=== PATIENT | female | born 1930 | race Caucasian/White ===

== ENCOUNTER 2017-02-15 08:31 | Inpatient (IN) | payer MEDICARE ==
[2017-02-15] MEDS ORDERED: NS 0.9% 1000 ML* 1,000 ML IV ONE (10:14)
[2017-02-15] MEDS ORDERED: LORazepam INJ* 2 MG/ML 1 ML VIAL IM ONE ×2 (10:14→14:43)
[2017-02-15] MEDS ORDERED: LORazepam INJ* 2 MG/ML 1 ML VIAL ONE (10:17)
[2017-02-15 11:21] LABS: Hematocrit 39 % (35-47); Hemoglobin 12.4 g/dl (12.0-16.0); Mean Corpuscular HGB Conc 32 g/dl (31-36); Mean Corpuscular Hemoglobin 28 pg (27-31); Mean Corpuscular Volume 85 fL (80-97); Mean Platelet Volume 8 um3 (7.4-10.4); Red Blood Count 4.53 10^6/ul (4.0-5.4); Red Cell Distribution Width 15 % (10.5-15); White Blood Count 10.3 10^3/ul (3.5-10.8)
[2017-02-15 11:38] LABS: ALT 11 U/L (7-52); AST 17 U/L (13-39); Alkaline Phosphatase 110 U/L (34-104); Anion Gap 8 mmol/L (2-11); BUN/Creatinine Ratio 24.1 (8-20); Blood Urea Nitrogen 33 mg/dL (6-24); CO2 Carbon Dioxide 26 mmol/L (22-32); Calcium 9.3 mg/dL (8.6-10.3); Chloride 108 mmol/L (101-111); Creatine Kinase 116 U/L (10-223); EGFR African American 46.9 (>60); EGFR Non-African American 36.5 (>60); Glucose 120 mg/dL (70-100); Magnesium 2.2 mg/dL (1.9-2.7); Potassium 4.5 mmol/L (3.5-5.0); Sodium 142 mmol/L (133-145)
--- NOTE | 2017-02-15 11:38 | RAD ---
Indication: Dementia. Single frontal view of the chest performed at 1100 hours was reviewed. No prior study is available. No mediastinal shift is noted. Heart is of normal size and configuration. Lung frias appear clear. IMPRESSION: NO ACTIVE CARDIOPULMONARY DISEASE IS NOTED.
--- NOTE | 2017-02-15 11:41 | RAD ---
INDICATION: Altered mental status. Dementia. COMPARISON: None TECHNIQUE: Noncontrast axial source images were acquired from the skull base to the vertex. FINDINGS: Ventricles/sulci: There is cortical atrophy with compensatory dilatation of the CSF spaces. Brain parenchyma: There is periventricular and subcortical white matter change compatible with chronic ischemia. Intracranial hemorrhage:None. Extra-axial spaces: There are no abnormal extra axial fluid collections or evidence of extra-axial mass. Calvarium: There is no calvarial fracture or other calvarial abnormality. Scalp: There is no evidence of scalp or extracalvarial soft tissue abnormality. Paranasal sinuses/mastoid: The paranasal sinuses and mastoid air cells are clear. Other: None. IMPRESSION: CORTICAL ATROPHY WITH CHRONIC MICROVASCULAR ISCHEMIC CHANGES. NO ACUTE FINDINGS.
[2017-02-15 12:15] LABS: Acetaminophen < 15 mcg/mL; Alcohol < 10 mg/dL (<10); Salicylate < 2.50 mg/dL (<30)
[2017-02-15 12:24] LABS: TSH (Thyroid Stimulating Horm) 0.82 mcIU/mL (0.34-5.60)
[2017-02-15] MEDS ORDERED: QUEtiapine TAB* 25 MG PO ONE (15:23)
[2017-02-15] MEDS ORDERED: amLODIPine TAB* 5 MG PO ONE (15:24)
[2017-02-15] MEDS: NS 0.9% 1000 ML* 1,000 ML BOLUS SCH (15:39)
[2017-02-15 16:37] LABS: Benzodiazepine Urine Screen None Detected (None Detect)
[2017-02-15 16:40] LABS: Urine Bacteria Absent (Absent); Urine Bilirubin Negative (Negative); Urine Glucose Negative (Negative); Urine Nitrite Negative (Negative)
--- NOTE | 2017-02-15 17:15 | ED ---
Sharif Sandoval Alfonso, scribed for Shawanda Mejia MD on 02/15/17 at 1020 . Psychiatric Complaint - HPI Summary HPI Summary: LEVEL 5 CAVEAT DUE TO COMBATIVE BEHAVIOR AMS. This patient is an 87 year old F BIBA to [facility] accompanied by daughter and Walnutedy Steven JOAQUIM with a chief complaint of combative behavior since this morning. She was kicking, punching, and fighting" per ALUMINUM HYDROXIDE PROCESS OPERATOR. Symptoms aggravated by nothing. Symptoms alleviated by nothing. Nurse denies any complaints of pain. Daughter reports Ativan has resolved this behavior in the past. PMHx includes dementia. PSHx Jul 2004 surgery colon and lung cancer. Pt was admitted in [facility] and was just transferred to the memory care unit of [facility] today, and has not had full intake there before she became combative. - History Of Current Complaint Chief Complaint: EDGeneral Time Seen by Provider: 02/15/17 10:10 Hx Obtained From: Patient, Family/Production Boring Machine Operator Onset/Duration: Sudden Onset, Lasting Hours, Still Present Timing: Constant Severity Initially: Moderate Severity Currently: Moderate Character: Angry, Frustrated Aggravating Factor(s): Nothing Alleviating Factor(s): Nothing Associated Signs And Symptoms: Positive: Hostile - Allergies/Home Medications Allergies/Adverse Reactions: Allergies Allergy/AdvReac Type Severity Reaction Status Date / Time Codeine Allergy Vomiting Verified 02/15/17 10:49 Hydromorphone [From Dilaudid] Allergy Agitation Verified 02/15/17 10:49 Home Medications: Home Medications Aspirin EC Low Dose* [Ecotrin EC Low Dose 81 MG*] 81 mg PO DAILY 02/15/17 [ History Confirmed 02/15/17] Atorvastatin* [Lipitor*] 40 mg PO QPM 02/15/17 [History Confirmed 02/15/17] Clopidogrel TAB* [Plavix TAB*] 75 mg PO DAILY 02/15/17 [History Confirmed ] Ergocalciferol CAP* [Drisdol CAP*] 50,000 unit PO Q7D 02/15/17 [History Confirmed 02/15/17] Metoprolol Tartrate TAB* [Lopressor TAB*] 50 mg PO BID 02/15/17 [History Confirmed 02/15/17] Mirtazapine TAB* [Remeron TAB*] 15 mg PO BEDTIME 02/15/17 [History Confirmed 12/25] Pantoprazole TAB (NF) [Protonix TAB (NF)] 40 mg PO DAILY 02/15/17 [History Confirmed 02/15/17] Polyethylene Glycol 3350* [Miralax*] 17 gm PO QAM 02/15/17 [History Confirmed ] QUEtiapine TAB* [SEROquel TAB*] 25 mg PO BID 02/15/17 [History Confirmed ] amLODIPine TAB* [Norvasc 5 mg TAB*] 5 mg PO DAILY 02/15/17 [History Confirmed ] busPIRone TAB* [Buspar TAB*] 10 mg PO BID 02/15/17 [History Confirmed 02/15/17] PMH/Surg Hx/FS Hx/Imm Hx Previously Healthy: No - dementia, hx UTI's Sensory History: Denies: Hx Deafness Opthamlomology History: Denies: Hx Legally Blind Neurological History: Reports: Hx Dementia - Cancer History Cancer Type, Location and Year: 2004 surgery colon and lung cancer. Infectious Disease History: No Infectious Disease History: Denies: Traveled Outside the [place] in Last 30 Days - Family History Known Family History: Positive: Cardiac Disease, Other - CVA - Social History Lives: Assisted Living - memory care unit [facility] Alcohol Use: None Substance Use Type: Reports: None Smoking Status (MU): Never Smoked Tobacco Review of Systems - ROS Summary Review of Systems Summary: LEVEL 5 CAVEAT DUE TO COMBATIVE BEHAVIOR AMS. Positive: Other - Negative any complaints of pain Psychological: Other - Combative, All Other Systems Reviewed And Are Negative: Yes Physical Exam Triage Information Reviewed: Yes Vital Signs On Initial Exam: Initial Vitals Temp Pulse Resp BP Pulse Ox 97.5 F 92 20 136/73 96 02/15/17 08:41 02/15/17 08:41 02/15/17 08:41 02/15/17 08:41 02/15/17 08:41 Vital Signs Reviewed: Yes Completion Of Physical Exam Limited Due To: Level 5 Appearance: Positive: No Pain Distress, Well-Nourished, Ill-Appearing Skin: Positive: Warm, Skin Color Reflects Adequate Perfusion Head/Face: Positive: Normal Head/Face Inspection Eyes: Positive: Conjunctiva Clear ENT: Positive: Normal ENT inspection Neck: Positive: Supple, Nontender Respiratory/Lung Sounds: Positive: Clear to Auscultation, Breath Sounds Present , Other - no respiratory distress Cardiovascular: Positive: RRR, Pulses are Symmetrical in both Upper and Lower Extremities, Other - brisk capillary refill. Negative: Murmur Abdomen Description: Positive: Nontender, Soft. Negative: Distended, Guarding, Peritoneal Signs, Pulsatile Mass Bowel Sounds: Positive: Present Musculoskeletal: Positive: Strength/ROM Intact Neurological: Positive: Sensory/Motor Intact, Facial Symmetry, Speech Normal Psychiatric: Positive: Other - Rambling speech, combative, hitting, swinging arms, Patient Uncooperative for Exam - [place] Coma Scale Coma Scale Total: 12 Diagnostics - Vital Signs Vital Signs Temp Pulse Resp BP Pulse Ox 02/15/17 08:41 97.5 F 92 20 136/73 96 - Laboratory Lab Results: Lab Results 02/15/17 02/15/17 02/15/17 Range/Units 11:09 11:09 11:09 WBC 10.3 (3.5-10.8) 10^3/ul RBC 4.53 (4.0-5.4) 10^6/ul Hgb 12.4 (12.0-16.0) g/dl Hct 39 (35-47) % MCV 85 (80-97) fL MCH 28 (27-31) pg MCHC 32 (31-36) g/dl RDW 15 (10.5-15) % Plt Count 303 (150-450) 10^3/ul MPV 8 (7.4-10.4) um3 Neut % (Auto) 87.3 H (38-83) % Lymph % (Auto) 6.7 L (25-47) % Hanover % (Auto) 4.8 (1-9) % Eos % (Auto) 0.5 (0-6) % Baso % (Auto) 0.7 (0-2) % Absolute Neuts (auto) 9.0 H (1.5-7.7) 10^3/ul Absolute Lymphs (auto) 0.7 L (1.0-4.8) 10^3/ul Absolute Monos (auto) 0.5 (0-0.8) 10^3/ul Absolute Eos (auto) 0 (0-0.6) 10^3/ul Absolute Basos (auto) 0.1 (0-0.2) 10^3/ul Absolute Nucleated RBC 0 10^3/ul Nucleated RBC % 0 INR (Anticoag Therapy) (0.89-1.11) Sodium 142 (133-145) mmol/L Potassium 4.5 (3.5-5.0) mmol/L Chloride 108 (101-111) mmol/L Carbon Dioxide 26 (22-32) mmol/L Anion Gap 8 (2-11) mmol/L BUN 33 H (6-24) mg/dL Creatinine 1.37 H (0.51-0.95) mg/dL Est GFR ( Amer) 46.9 (>60) Est GFR (Non-Af Amer) 36.5 (>60) BUN/Creatinine Ratio 24.1 H (8-20) Glucose 120 H (70-100) mg/dL POC Glucose (mg/dL) (70-100) mg/dL Lactic Acid (0.5-2.0) mmol/L Calcium 9.3 (8.6-10.3) mg/dL Magnesium 2.2 (1.9-2.7) mg/dL Total Bilirubin 0.60 (0.2-1.0) mg/dL AST 17 (13-39) U/L ALT 11 (7-52) U/L Alkaline Phosphatase 110 H (34-104) U/L Ammonia TNP Total Creatine Kinase 116 (10-223) U/L Troponin I 0.00 (<0.04) ng/mL Total Protein 7.0 (6.4-8.9) g/dL Albumin 4.0 (3.2-5.2) g/dL Globulin 3.0 (2-4) g/dL Albumin/Globulin Ratio 1.3 (1-3) TSH 0.82 (0.34-5.60) mcIU/mL Urine Color Urine Appearance Urine pH (5-9) Ur Specific Pharr (1.010-1.030) Urine Protein (Negative) Urine Ketones (Negative) Urine Blood (Negative) Urine Nitrate (Negative) Urine Bilirubin (Negative) Urine Urobilinogen (Negative) Ur Leukocyte Esterase (Negative) Urine WBC (Auto) (Absent) Urine RBC (Auto) (Absent) Urine Bacteria (Absent) Urine Glucose (Negative) Salicylates < 2.50 (<30) mg/dL Urine Opiates Screen (None Detect) Acetaminophen < 15 mcg/mL Ur Barbiturates Screen (None Detect) Ur Phencyclidine Scrn (None Detect) Ur Amphetamines Screen (None Detect) U Benzodiazepines Scrn (None Detect) Urine Cocaine Screen (None Detect) U Cannabinoids Screen (None Detect) Serum Alcohol < 10 (<10) mg/dL 02/15/17 02/15/17 02/15/17 Range/Units 11:09 11:09 11:14 WBC (3.5-10.8) 10^3/ul RBC (4.0-5.4) 10^6/ul Hgb (12.0-16.0) g/dl Hct (35-47) % MCV (80-97) fL MCH (27-31) pg MCHC (31-36) g/dl RDW (10.5-15) % Plt Count (150-450) 10^3/ul MPV (7.4-10.4) um3 Neut % (Auto) (38-83) % Lymph % (Auto) (25-47) % Hanover % (Auto) (1-9) % Eos % (Auto) (0-6) % Baso % (Auto) (0-2) % Absolute Neuts (auto) (1.5-7.7) 10^3/ul Absolute Lymphs (auto) (1.0-4.8) 10^3/ul Absolute Monos (auto) (0-0.8) 10^3/ul Absolute Eos (auto) (0-0.6) 10^3/ul Absolute Basos (auto) (0-0.2) 10^3/ul Absolute Nucleated RBC 10^3/ul Nucleated RBC % INR (Anticoag Therapy) 0.83 L (0.89-1.11) Sodium (133-145) mmol/L Potassium (3.5-5.0) mmol/L Chloride (101-111) mmol/L Carbon Dioxide (22-32) mmol/L Anion Gap (2-11) mmol/L BUN (6-24) mg/dL Creatinine (0.51-0.95) mg/dL Est GFR ( Amer) (>60) Est GFR (Non-Af Amer) (>60) BUN/Creatinine Ratio (8-20) Glucose (70-100) mg/dL POC Glucose (mg/dL) 124 H (70-100) mg/dL Lactic Acid 1.1 (0.5-2.0) mmol/L Calcium (8.6-10.3) mg/dL Magnesium (1.9-2.7) mg/dL Total Bilirubin (0.2-1.0) mg/dL AST (13-39) U/L ALT (7-52) U/L Alkaline Phosphatase (34-104) U/L Ammonia Total Creatine Kinase (10-223) U/L Troponin I (<0.04) ng/mL Total Protein (6.4-8.9) g/dL Albumin (3.2-5.2) g/dL Globulin (2-4) g/dL Albumin/Globulin Ratio (1-3) TSH (0.34-5.60) mcIU/mL Urine Color Urine Appearance Urine pH (5-9) Ur Specific Pharr (1.010-1.030) Urine Protein (Negative) Urine Ketones (Negative) Urine Blood (Negative) Urine Nitrate (Negative) Urine Bilirubin (Negative) Urine Urobilinogen (Negative) Ur Leukocyte Esterase (Negative) Urine WBC (Auto) (Absent) Urine RBC (Auto) (Absent) Urine Bacteria (Absent) Urine Glucose (Negative) Salicylates (<30) mg/dL Urine Opiates Screen (None Detect) Acetaminophen mcg/mL Ur Barbiturates Screen (None Detect) Ur Phencyclidine Scrn (None Detect) Ur Amphetamines Screen (None Detect) U Benzodiazepines Scrn (None Detect) Urine Cocaine Screen (None Detect) U Cannabinoids Screen (None Detect) Serum Alcohol (<10) mg/dL 02/15/17 02/15/17 Range/Units 14:10 14:10 WBC (3.5-10.8) 10^3/ul RBC (4.0-5.4) 10^6/ul Hgb (12.0-16.0) g/dl Hct (35-47) % MCV (80-97) fL MCH (27-31) pg MCHC (31-36) g/dl RDW (10.5-15) % Plt Count (150-450) 10^3/ul MPV (7.4-10.4) um3 Neut % (Auto) (38-83) % Lymph % (Auto) (25-47) % Hanover % (Auto) (1-9) % Eos % (Auto) (0-6) % Baso % (Auto) (0-2) % Absolute Neuts (auto) (1.5-7.7) 10^3/ul Absolute Lymphs (auto) (1.0-4.8) 10^3/ul Absolute Monos (auto) (0-0.8) 10^3/ul Absolute Eos (auto) (0-0.6) 10^3/ul Absolute Basos (auto) (0-0.2) 10^3/ul Absolute Nucleated RBC 10^3/ul Nucleated RBC % INR (Anticoag Therapy) (0.89-1.11) Sodium (133-145) mmol/L Potassium (3.5-5.0) mmol/L Chloride (101-111) mmol/L Carbon Dioxide (22-32) mmol/L Anion Gap (2-11) mmol/L BUN (6-24) mg/dL Creatinine (0.51-0.95) mg/dL Est GFR ( Amer) (>60) Est GFR (Non-Af Amer) (>60) BUN/Creatinine Ratio (8-20) Glucose (70-100) mg/dL POC Glucose (mg/dL) (70-100) mg/dL Lactic Acid (0.5-2.0) mmol/L Calcium (8.6-10.3) mg/dL Magnesium (1.9-2.7) mg/dL Total Bilirubin (0.2-1.0) mg/dL AST (13-39) U/L ALT (7-52) U/L Alkaline Phosphatase (34-104) U/L Ammonia Total Creatine Kinase (10-223) U/L Troponin I (<0.04) ng/mL Total Protein (6.4-8.9) g/dL Albumin (3.2-5.2) g/dL Globulin (2-4) g/dL Albumin/Globulin Ratio (1-3) TSH (0.34-5.60) mcIU/mL Urine Color Yellow Urine Appearance Clear Urine pH 7.0 (5-9) Ur Specific Pharr 1.011 (1.010-1.030) Urine Protein Negative (Negative) Urine Ketones Negative (Negative) Urine Blood Negative (Negative) Urine Nitrate Negative (Negative) Urine Bilirubin Negative (Negative) Urine Urobilinogen Negative (Negative) Ur Leukocyte Esterase Trace H (Negative) Urine WBC (Auto) Trace(0-5/hpf) (Absent) Urine RBC (Auto) Absent (Absent) Urine Bacteria Absent (Absent) Urine Glucose Negative (Negative) Salicylates (<30) mg/dL Urine Opiates Screen None detected (None Detect) Acetaminophen mcg/mL Ur Barbiturates Screen None detected (None Detect) Ur Phencyclidine Scrn None detected (None Detect) Ur Amphetamines Screen None detected (None Detect) U Benzodiazepines Scrn None detected (None Detect) Urine Cocaine Screen None detected (None Detect) U Cannabinoids Screen None detected (None Detect) Serum Alcohol (<10) mg/dL Result Diagrams: 02/15/17 11:09 02/15/17 11:09 Lab Statement: Any lab studies that have been ordered have been reviewed, and results considered in the medical decision making process. - Radiology CXR Radiology Interpretation Completed By: Radiologist - NO ACTIVE CARDIOPULMONARY DISEASE IS NOTED. ED physician has reviewed this radiology report and agrees. - CT Brain CT Interpretation Completed By: Radiologist - CORTICAL ATROPHY WITH CHRONIC MICROVASCULAR ISCHEMIC CHANGES. NO ACUTE FINDINGS. ED physician has reviewed this radiology report and agrees. Re-Evaluation - Re-Evaluation First Eval Re-Evaluation Time: 14:48 Comment: Patient still agitated. Pt administered another dose of medication. Second Eval Re-Evaluation Time: 16:56 - pt sleeping after second dose of Ativan 2mg. Urinalysis is neg for infx. Pt's daughter Theresa discussed with Vivian Prieto, business development executive of the memory care unit at [facility]. [phone]. Daughter agrees to social admission if pt does not meet admission criteria. Vivian Prieto and Kassandra Steven will check on pt in the am. Change: Improved Course/Dx - Course Assessment/Plan: LEVEL 5 CAVEAT DUE TO COMBATIVE BEHAVIOR AMS. This patient is an 87 year old F BIBA to [facility] accompanied by daughter and Amy Steven LPN with a chief complaint of combative behavior since this morning. She was kicking, punching, and fighting. Symptoms aggravated by nothing. Symptoms alleviated by nothing. Nurse denies any complaints of pain. Daughter reports Ativan has resolved this behavior in the past. PMHx includes dementia. PSHx Jul 2004 surgery colon and lung cancer. An EKG has been refused at this time. CXR reveals NO ACTIVE CARDIOPULMONARY DISEASE IS NOTED. ED physician has reviewed this radiology report and agrees. Brain CT reveals CORTICAL ATROPHY WITH CHRONIC MICROVASCULAR ISCHEMIC CHANGES. NO ACUTE FINDINGS. ED physician has reviewed this radiology report and agrees. labs show elevated BUN creatinine. Pt given 2 liters IV fluid in ED. pt given ativan 2mg IM x 2 due to combative behavior. UA neg. Pt was seen by Lina from social work. Discussed with Dr. Wilson. Pt does not meet admission criteria for acute care. Plan to admit for social admission and further evaluation and stabilization. - Differential Dx/Clinical Impression Differential Diagnosis/HQI/PQRI: Positive: Acute Psychosis, Other - UTI, metabolic disorder Provider Diagnosis: Dementia, Combative behavior - Physician Notifications Instructed by Provider To: Admit As Observation - social admission Discharge - Discharge Plan Condition: Stable Disposition: ADMITTED TO [facility] Discharge Disposition Comment: social admission Referrals: Addis Mcadams MD [Primary Care Provider] - The documentation as recorded by the Sharif jackson Alfonso accurately reflects the service I personally performed and the decisions made by , Shawanda Mejia MD.
[2017-02-15] MEDS ORDERED: busPIRone TAB* 5 MG PO SCH (21:00)
[2017-02-15] MEDS: Mirtazapine TAB* 15 MG PO SCH (21:20)
[2017-02-15] MEDS: Haloperidol INJ IV/IM* 5 MG/ML AMP IM PRN (21:50)
[2017-02-15] MEDS: QUEtiapine TAB* 25 MG PO SCH (21:51)
[2017-02-15] MEDS: Metoprolol Tartrate TAB* 50 mg PO SCH (21:51)
[2017-02-15] MEDS: busPIRone TAB* 10 MG PO SCH (21:52)
[2017-02-15] MEDS: Enoxaparin(*) 30 MG/0.3 ML SYR SUBCUT SCH (21:55)
--- NOTE | 2017-02-15 22:28 | HP ---
SUPERVISING PHYSICIAN'S ADDENDUM NOW INCLUDED ON THIS REPORT CC: Dr. Mcadams; [facility] * ADMISSION HISTORY AND PHYSICAL: DATE OF ADMISSION: PRIMARY CARE PROVIDER: Dr. Mcadams. ADMITTING PROVIDER: HILDA Chatterjee SUPERVISING PHYSICIAN: Prabha Bustamante MD * (DICTATED BY HILDA CHATTERJEE) CHIEF COMPLAINT: Acute agitation. HISTORY OF PRESENT ILLNESS: This is an 87-year-old female with known moderate to severe dementia as well as history of prior TIA, carotid stenosis, status post carotid endarterectomy, hypertension, remote history of lung cancer and colorectal cancer, who was transferred to [facility] yesterday from a rehab facility in the [facility] to be closer to her daughter. The patient had been treated for urinary tract infection during a recent hospital stay in the [facility] and transferred from there to a local rehab facility. Her daughter wanted to get her closer to her home in [place] and had arranged transfer to [facility]. She was taken by ambulance yesterday to [place] and was quite anxious about the transfer, but arrived yesterday afternoon and participated in mealtime and was able to feed herself without concern. This morning, she awoke and became severely combative, trying to bite , scratch, and punch nursing staff. She was subsequently transferred to the emergency department for further evaluation. The patient has had no other acute illness. Her daughter states that she has displayed similar, but less severe behavior in the past associated with her dementia and has previously responded to Ativan. The patient's daughter states that at her baseline, her memory is poor, sometimes she forgets who her daughter is, but she is able to ambulate nearly independently as well as feed herself. Up until the last couple of months, she was also continent of urine, but has recently become reliant on the use of Depends due to urinary incontinence. Apart from her transfer from [facility] yesterday, there has been no recent changes or other acute complaints. The patient's daughter also notes that she has had better response to treatment with Seroquel at 50 mg twice daily and notices that the recent rehab facility had decreased her down to 25 mg twice daily. PAST MEDICAL HISTORY: 1. Dementia, moderate to severe with history of behavior concerns, but generally mild. 2. History of TIA. 3. Carotid stenosis status post carotid endarterectomy. 4. History of lung cancer, status post lobectomy and radiation. 5. Colorectal cancer, status post partial colectomy. 6. Hypertension. PAST SURGICAL HISTORY: 1. Carotid endarterectomy. 2. Lobectomy. 3. Partial colectomy. HOME MEDICATIONS: 1. Aspirin 81 mg p.o. daily. 2. Atorvastatin 40 mg p.o. daily. 3. Plavix 75 mg p.o. daily. 4. Metoprolol 50 mg p.o. twice daily. 5. Remeron 15 mg p.o. at bedtime. 6. Protonix 40 mg p.o. daily. 7. MiraLAX 17 g p.o. daily. 8. Seroquel 25 mg p.o. twice daily. 9. Amlodipine 5 mg p.o. daily. 10. BuSpar 10 mg p.o. twice daily. SOCIAL HISTORY: The patient has a remote smoking history, unsure of the pack years. No regular alcohol consumption. She is a senior living resident of [facility] and recently moved to [place] yesterday. REVIEW OF SYSTEMS: Unable to obtain from the patient; but per her daughter, there have been no recent complaints. PHYSICAL EXAMINATION VITAL SIGNS: Temperature 97.5 degrees Fahrenheit, pulse 93 beats per minute, respiratory rate 20 per minute, oxygen saturation 96% on room air, and blood pressure 136/73 mmHg. GENERAL: This is an elderly female, who lies with her eyes closed, but appears somewhat restless in her hospital bed, accompanied by her daughter. HEENT: Head is normocephalic and atraumatic. Unable to examine mucous membranes. CARDIOVASCULAR: Heart has a regular rate and rhythm without murmurs, rubs, or gallops. RESPIRATORY: The patient is not cooperative with lung exam, but no adventitious sounds appreciated. ABDOMEN: Abdomen is soft and seemingly nontender. SKIN: She has multiple areas of ecchymosis, but no concerning rashes or lesions. PSYCH: The patient lies with her eyes closed, does not respond to verbal stimuli and appears restless and disoriented. DIAGNOSTIC STUDIES/LAB DATA: CBC shows a white blood cell count of 10,300, hemoglobin of 12.4 g/dL, and a platelet count of 303,000. INR 0.83. Comprehensive metabolic panel is largely unremarkable. Sodium of 142, potassium 4.5, BUN of 33, creatinine of 1.37, lactic acid normal up to 1.1. Transaminases total bilirubin within normal limits. Troponin negative. Urinalysis shows trace leukocyte esterase, but otherwise unremarkable. Urine toxicology screen is negative. IMAGING: Chest x-ray shows no acute process. CT of the brain shows chronic ischemic changes and cortical atrophy, but no acute findings. ASSESSMENT AND PLAN: This is an 87-year-old female with advanced dementia, brought to the emergency department for evaluation from [place] for severe agitation after transfer from the [facility] yesterday. No acute findings identified on workup in the emergency department, but she is unable to return to [facility] or home with her daughter due to the severity of her behaviors and will subsequently be admitted to the hospital for further treatment. 1. Advanced dementia with severe agitation. The patient's agitation is likely due to her acute transition in the last 24 hours where she travelled from the [facility] to [place]. No reversible causes for change in behavior identified on workup in the emergency department. She received multiple doses of oral antipsychotics and IM benzodiazepines in the emergency department. She is somewhat sedated, but still quite restless at this time. We will plan to continue her home medications, but increase her Seroquel to 50 mg twice daily as she is able to cooperate with oral medications. We will hold off on additional benzos, utilize as needed Haldol if necessary for episodes of severe agitation. Staff from [facility] plans to come to reevaluate the patient for appropriate necessary return to [facility] tomorrow. 2. Hypertension. We will continue her home hypertensives. 3. History of lung cancer, status post lobectomy and radiation. 4. History of colorectal cancer, status post partial colectomy. 5. Carotid stenosis, status post carotid endarterectomy. 6. Code status. The patient is full code. 7. Her healthcare proxy is her daughter, Melanie. 8. DVT prophylaxis. The patient will be started on subcu Lovenox. DISPOSITION: The patient is being admitted to observation status for severe agitation with plan to reevaluate appropriateness to return to [place] by nursing staff tomorrow. HILDA CHATTERJEE ADDENDUM: Mrs. Bhatia is an 87-year-old female with history of dementia who was just admitted to one of our nursing homes from hospitalization in the [facility]. The patient presented to the group home combative and unmanageable in the facility. The facility brought the patient back to our ED for evaluation. Here she is going to be admitted for snf care admission. For further details of patient's presentation and plan, please see history and physical dictated by HILDA Chatterjee, on 02/15/17, with which I agree. PRABHA BUSTAMANTE MD [id number]/[facility] #: [id number]/CPS #: [id number] ANETTE
--- NOTE | 2017-02-15 22:36 | HP ---
HISTORY AND PHYSICAL:* ADDENDUM: Mrs. Bhatia is an 87-year-old female with history of dementia who was just admitted to one of our nursing homes from hospitalization in the [facility] area. The patient presented to the retirement combative and unmanageable in the facility. The facility brought the patient back to our ED for evaluation. Here she is going to be admitted for residential care admission. For further details of patient's presentation and plan, please see history and physical dictated by HILDA Blas, on 02/15/17, with which I agree. [id number]/[facility] #: [id number] MTDD
[2017-02-16] MEDS: Haloperidol INJ IV/IM* 5 MG/ML AMP IM PRN ×2 (02:32→12:10)
[2017-02-16] MEDS: busPIRone TAB* 10 MG PO SCH ×5 (10:41→23:43)
[2017-02-16] MEDS: CMCS: Pantoprazole TAB (NF) 40 MG TAB PO SCH (10:41)
[2017-02-16] MEDS: Polyethylene Glycol 3350* 17 GM PACKET PO SCH (10:41)
--- NOTE | 2017-02-16 11:21 | PN ---
Subjective Date of Service: 02/16/17 Interval History: Patient was admitted yesterday with c/o severe agitation and known advanced dementia. Patient was severely agitated upon transfer from the ER to medical floor last night. She took her oral evening meds and required 2 doses of IM Haldol. She is sleeping this morning and has not awoken for breakfast or morning medications Objective Active Medications: Acetaminophen (Tylenol Tab*) 650 mg PO Q4H PRN PRN Reason: FEVER/PAIN Amlodipine Besylate (Norvasc Tab*) 5 mg PO DAILY [facility] Aspirin (Aspirin Ec Low Dose*) 81 mg PO DAILY [facility] Atorvastatin Calcium (Lipitor*) 40 mg PO QPM [facility] Buspirone HCl (Buspar Tab*) 10 mg PO BID [facility] Last Admin: 02/16/17 10:41 Dose: Not Given Clopidogrel Bisulfate (Plavix Tab*) 75 mg PO DAILY [facility] Enoxaparin Sodium (Lovenox(*)) 30 mg SUBCUT Q24H [facility] Last Admin: 02/15/17 21:55 Dose: 30 mg Sodium Chloride (Ns 0.9% 1000 Ml*) 1,000 mls @ 0 mls/hr BOLUS .BOLUS DOSE [facility] PRN Reason: Wide Open Last Admin: 02/15/17 15:39 Dose: 999 mls/hr Metoprolol Tartrate (Lopressor Tab*) 50 mg PO BID [facility] Last Admin: 02/15/17 21:51 Dose: 50 mg Mirtazapine (Remeron Tab*) 15 mg PO BEDTIME [facility] Last Admin: 02/15/17 21:20 Dose: 15 mg Pantoprazole Sodium (Protonix Tab (Nf)) 40 mg PO DAILY [facility] Last Admin: 02/16/17 10:41 Dose: Not Given Polyethylene Glycol/Electrolytes (Miralax*) 17 gm PO QAM [facility] Last Admin: 02/16/17 10:41 Dose: Not Given Quetiapine Fumarate (Seroquel Tab*) 50 mg PO BID [facility] Last Admin: 02/15/17 21:51 Dose: 50 mg Vital Signs: Temp Pulse Resp BP Pulse Ox 97.2 F 83 15 136/111 97 02/15/17 19:44 02/16/17 07:23 02/16/17 07:28 02/16/17 07:23 02/16/17 07:23 Appearance: Elderly female who is resting comfortably. She not stir during exam Respiratory: Symmetrical Chest Expansion and Respiratory Effort, Clear to Auscultation, - - limited exam Cardiovascular: NL Sounds; No Murmurs; No JVD, RRR Abdominal: NL Sounds; No Tenderness; No Distention, - - limited exam Extremities: No Edema Neurological: - - sleeping, she does not wake to light stimuli Result Diagrams: 02/15/17 11:09 02/15/17 11:09 Additional Lab and Data: . Microbiology and Other Data: Microbiology 02/15/17 21:05 Nasal Screen MRSA (PCR)(RAINE) - Final Nasal Mrsa Positive Assess/Plan/Problems-Billing Assessment: This is an 87 yo female with advanced dementia as well as prior TIA and HTN who was admitted for severe agitation. - Patient Problems (1) Agitation Comment: Severe, physically threatening staff overnight She is now sedated after 2 doses of IV Haldol Requested psychiatry consultation to aid in medication management (2) Dementia Comment: Moderate to severe with history of mild behavior concerns (3) History of TIA (transient ischemic attack) Comment: Cont statin and antiplatelet agents (4) Hypertension Comment: Normotensive Resume oral medications when she can take oral medication (5) Full code status Comment: Signed MOLST (6) DVT prophylaxis Comment: SQ Lovenox Status and Disposition: Inpatient. Plan for re-evaluation Sunday by Amy for appropriateness to return vs need for fpc facility
[2017-02-16] MEDS: Metoprolol Tartrate TAB* 50 mg PO SCH ×2 (14:38→23:43)
[2017-02-16] MEDS: QUEtiapine TAB* 25 MG PO SCH ×3 (14:38→23:32)
[2017-02-16] MEDS: amLODIPine TAB* 5 MG PO SCH (18:29)
[2017-02-16] MEDS: Clopidogrel TAB* 75 MG PO SCH (18:29)
[2017-02-16] MEDS: Aspirin EC Low Dose* 81 MG TAB.EC PO SCH (18:29)
[2017-02-16] MEDS: Enoxaparin(*) 30 MG/0.3 ML SYR SUBCUT SCH (18:29)
[2017-02-16] MEDS: Atorvastatin* 40 MG TAB PO SCH (18:29)
[2017-02-16] MEDS: LORazepam INJ* 2 MG/ML 1 ML VIAL IV PUSH PRN ×2 (18:36→23:00)
[2017-02-16] MEDS: Mirtazapine TAB* 15 MG PO SCH (23:32)
--- NOTE | 2017-02-16 23:39 | CONS ---
PSYCHIATRIC CONSULTATION REPORT: DATE OF CONSULT: 02/15/17 DATE OF ADMISSION: 02/15/17 ATTENDING PROVIDER: Physician's preschool assistant, Morganemiliano Sifuentes. CONSULTING PHYSICIAN: Domo Schmidt MD. REASON FOR CONSULTATION: Agitation. SUBJECTIVE HISTORY: Psychiatry is asked to see this 87-year-old white female with a history of xgylxpdl-[id number]-yoiwns dementia as well as history of prior TIA, carotid stenosis, carotid endarterectomy, hypertension, remote history of lung cancer and colorectal cancer who was transferred to the [facility] yesterday from a nursing facility in [place], [place] in order to be closer to her daughter who resides in [facility]. I am reading the admission note from Ms. Sifuentes which indicates that the patient had recently been treated for urinary tract infection and was then transferred to a local rehab facility. Her daughter wanted her to be closer to her home in [place] and had arranged the transfer to [facility]. H and P documentation indicates that the patient was taken by ambulance to [facility] and was quite anxious about this transfer, but was able to feed herself and cooperate without concern until the morning of admission. At that time, she awoke and became severely combative, trying to bite, scratch and pinch nursing staff, and she was subsequently transferred to the [facility] ED for further evaluation. At this time, the patient is observed in bed. She is asleep and unarousable having just received an IM injection of 2.5 mg of haloperidol approximately one-hour prior to my arrival. I did speak with her nurse on the unit who indicates that the patient has not been accepting p.o. medication and was agitated and trying to bite staff. In order to receive further collateral information, I called the patient's daughter Theresa, who indicates that the patient has had several episodes of confusion since 2014 following her surgery for colorectal cancer. While the patient was awaiting hospitalization in our emergency room, she had at least 2 episodes of combative behavior and wished she was sedated with Ativan, which made her sleep, but she promptly awoke in an agitated state. At this point, the primary team has already increased the patient's Seroquel from 25 to 50 and placed her on as needed haloperidol for agitation. In speaking with the patient's daughter I discovered that in the past the patient had done quite well behaviorally on quetiapine 50 mg twice daily and the family is frustrated that her outpatient provider has decreased this. It is uncertain rationale why the medication was reduced. At any rate, the patient presents as somnolent and difficult to arouse. She is not able to make any complaints of her own accord at this time. PSYCHIATRIC HISTORY: The patient has been diagnosed with dementia for the past 2 years. Seroquel was started in the spring during a brief hospitalization at [facility]. It was initially 12.5 mg twice daily then titrated to 25 and finally 50 mg b.i.d. The patient's family indicates that this worked well for her, but the medication was reduced by the doctors at the rehab where she was staying. Prior to her dementia, she had no psychiatric history. SUBSTANCE ABUSE HISTORY: The patient is a former smoker who quit approximately 20 years ago. She has no history of alcohol or illicit drug abuse. FAMILY HISTORY: Noncontributory. MEDICAL HISTORY: Significant for [id number]-vvmhrlyw dementia, history of TIA, history of carotid stenosis status post carotid endarterectomy, history of lung cancer, status post lobectomy and radiation, colorectal cancer status post partial colectomy, hypertension, and chronic constipation. HOME MEDICATIONS: Include; 1. Aspirin 81 mg daily. 2. Atorvastatin 40 mg daily. 3. Plavix 75 mg daily. 4. Metoprolol 50 mg twice daily. 5. Remeron 15 mg at bedtime. 6. Protonix 40 mg daily. 7. MiraLAX 17 g daily. 8. Seroquel 25 mg p.o. b.i.d. 9. Amlodipine 5 mg daily. 10. BuSpar 10 mg twice a day. SOCIAL HISTORY: The patient is from [place]. She was , but approximately 24 years ago. She has 2 children, a son and a daughter. Her son resides in [place] [facility] [place] [facility] whereas her daughter resides in [facility]. 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 Most recently, she has been transferred to [facility] in order to reside closer to her daughter who resides in [place]. MENTAL STATUS EXAM: The patient is an aging white female who is elderly. She is under her blanket, asleep, curled up in her bed, lying on her side. She is asleep and unarousable and therefore I am unable to gauge her mood or affect, her thought process or thought content, her insight or her judgement. It would appear from recent staff's accounts that she is agitated and labile of late. DIAGNOSIS: Are as follows, [place] I: Dementia, rule out delirium, rule out unspecified anxiety disorder. ASSESSMENT: The patient is an 87-year-old white female with a history of dementia as well as multiple medical problems who was transferred here from the [facility] having only spent a 24 hour period there following a transfer from a senior facility in [place] [facility] who now presents as confused and agitated. She is biting staff, will not take p.o. medications, and has been quite combative. The primary team has already increased her Seroquel from 25 mg to 50 mg b.i.d. and the family is very much supportive of this. She is also receiving BuSpar twice daily for anxiety and Remeron 15 mg nightly presumably for insomnia and depression. The primary team is also using as needed p.r.n. haloperidol IM injections for breakthrough combativeness. Recommendations to primary team, Psychiatry supports the increase in quetiapine from 25 mg to 50 mg. It sounds like when she is able to take this, it does well. In the meantime, her agitation will need to be managed with low dose haloperidol, which has already been ordered by the primary team as well. Psychiatry will continue to follow along with you. It is notable that this clinician will not be here this weekend and therefore consult duties will pass on to the on-call psychiatrist, Dr. Angel Terrell. He can be contacted by calling the Behavioral Science Unit which can be reached at the extension [phone]. Psychiatry will continue to follow. [id number]/CPS #: [id number] ANETTE
[2017-02-17] MEDS: Haloperidol INJ IV/IM* 5 MG/ML AMP IM PRN ×3 (09:34→21:59)
[2017-02-17] MEDS: LORazepam INJ* 2 MG/ML 1 ML VIAL IV PUSH PRN ×3 (09:54→21:22)
[2017-02-17] MEDS: amLODIPine TAB* 5 MG PO SCH (10:36)
[2017-02-17] MEDS: Clopidogrel TAB* 75 MG PO SCH (10:36)
[2017-02-17] MEDS: QUEtiapine TAB* 25 MG PO SCH ×2 (10:36→21:57)
[2017-02-17] MEDS: Metoprolol Tartrate TAB* 50 mg PO SCH ×2 (10:36→21:56)
[2017-02-17] MEDS: busPIRone TAB* 10 MG PO SCH ×2 (10:37→21:57)
[2017-02-17] MEDS: CMCS: Pantoprazole TAB (NF) 40 MG TAB PO SCH (10:48)
[2017-02-17] MEDS: Aspirin EC Low Dose* 81 MG TAB.EC PO SCH (10:48)
[2017-02-17] MEDS: Polyethylene Glycol 3350* 17 GM PACKET PO SCH (10:49)
[2017-02-17] MEDS: cefTRIAXone VIAL(*) 1,000 MG in NS 0.9% 50 ML* 50 ML IVPB SCH (12:25)
[2017-02-17] MEDS: NS 0.9% 1000 ML* 1,000 ML BOLUS SCH (12:25)
--- NOTE | 2017-02-17 13:32 | PN ---
Subjective Date of Service: 02/17/17 Interval History: No significant changes. Patient has been intermittently more cooperative overnight and this am, but still requiring rather frequent prn IV/IM medications to control violent behavior. Objective Active Medications: Acetaminophen (Tylenol Tab*) 650 mg PO Q4H PRN PRN Reason: FEVER/PAIN Amlodipine Besylate (Norvasc Tab*) 5 mg PO DAILY [facility] Last Admin: 02/17/17 10:36 Dose: 5 mg Aspirin (Aspirin Ec Low Dose*) 81 mg PO DAILY [facility] Last Admin: 02/17/17 10:48 Dose: Not Given Atorvastatin Calcium (Lipitor*) 40 mg PO QPM [facility] Last Admin: 02/16/17 18:29 Dose: Not Given Buspirone HCl (Buspar Tab*) 10 mg PO BID [facility] Last Admin: 02/17/17 10:37 Dose: 10 mg Clopidogrel Bisulfate (Plavix Tab*) 75 mg PO DAILY [facility] Last Admin: 02/17/17 10:36 Dose: 75 mg Enoxaparin Sodium (Lovenox(*)) 30 mg SUBCUT Q24H [facility] Last Admin: 02/16/17 18:29 Dose: Not Given Haloperidol Lactate (Haldol Inj Iv/Im*) 5 mg IM Q4H PRN PRN Reason: AGITATION Last Admin: 02/17/17 09:34 Dose: 5 mg Sodium Chloride (Ns 0.9% 1000 Ml*) 1,000 mls @ 0 mls/hr BOLUS .BOLUS DOSE [facility] PRN Reason: Wide Open Last Admin: 02/17/17 12:25 Dose: 999 mls/hr Ceftriaxone Sodium 1,000 mg/ (Sodium Chloride) 50 mls @ 200 mls/hr IVPB Q24H [facility] Last Admin: 02/17/17 12:25 Dose: 200 mls/hr Lorazepam (Ativan Inj*) 0.5 mg IV PUSH Q4H PRN PRN Reason: AGITATION Last Admin: 02/17/17 09:54 Dose: 0.5 mg Metoprolol Tartrate (Lopressor Tab*) 50 mg PO BID [facility] Last Admin: 02/17/17 10:36 Dose: 50 mg Mirtazapine (Remeron Tab*) 15 mg PO BEDTIME [facility] Last Admin: 02/16/17 23:32 Dose: 15 mg Pantoprazole Sodium (Protonix Tab (Nf)) 40 mg PO DAILY [facility] Last Admin: 02/17/17 10:48 Dose: Not Given Polyethylene Glycol/Electrolytes (Miralax*) 17 gm PO QAM [facility] Last Admin: 02/17/17 10:49 Dose: Not Given Quetiapine Fumarate (Seroquel Tab*) 50 mg PO BID [facility] Last Admin: 02/17/17 10:36 Dose: 50 mg Vital Signs: Temp Pulse Resp BP Pulse Ox 97.9 F 66 22 135/74 100 02/17/17 07:54 02/17/17 07:54 02/17/17 10:54 02/17/17 07:54 02/17/17 07:54 Appearance: Elderly female who is resting comfortably at the time of exam. Does not stir to verbal or light tactile stimuli Ears/Nose/Mouth/Throat: - - dry mucus membranes Respiratory: Symmetrical Chest Expansion and Respiratory Effort, Clear to Auscultation Cardiovascular: NL Sounds; No Murmurs; No JVD, RRR Abdominal: NL Sounds; No Tenderness; No Distention Extremities: No Edema Skin: No Rash or Ulcers Neurological: - - sedated Result Diagrams: 02/15/17 11:09 02/15/17 11:09 Additional Lab and Data: . Microbiology and Other Data: Microbiology 02/15/17 21:05 Nasal Screen MRSA (PCR)(RAINE) - Final Nasal Mrsa Positive Assess/Plan/Problems-Billing Assessment: This is an 87 yo female with advanced dementia as well as prior TIA and HTN who was admitted for severe agitation. - Patient Problems (1) Agitation Comment: Severe, physically threatening staff Continues to require freq doses of IM Haldol or IV Ativan for symptom control Appreciate psychiatric consultation who suggested continuing current medication regimen Urine culture now demonstrates UTI which is likely contributing to current sx's (2) UTI (urinary tract infection) Comment: Urine cx growing >100K Enterococcus Started ceftriaxone empirically Awaiting sensitivities (3) Dementia Comment: Moderate to severe with history of mild behavior concerns (4) History of TIA (transient ischemic attack) Comment: Cont statin and antiplatelet agents (5) Hypertension Comment: Normotensive Resume oral medications when she can take oral medication (6) Full code status Comment: Signed MOLST (7) DVT prophylaxis Comment: SQ Lovenox Status and Disposition: Inpatient. Plan for re-evaluation Sunday by Amy for appropriateness to return vs need for snf facility
[2017-02-17] MEDS: Atorvastatin* 40 MG TAB PO SCH (17:16)
[2017-02-17] MEDS: Enoxaparin(*) 30 MG/0.3 ML SYR SUBCUT SCH (17:16)
[2017-02-17] MEDS: Mirtazapine TAB* 15 MG PO SCH (21:57)
[2017-02-18] MEDS: LORazepam INJ* 2 MG/ML 1 ML VIAL IV PUSH PRN ×2 (07:27→17:36)
[2017-02-18] MEDS: busPIRone TAB* 10 MG PO SCH (08:46)
[2017-02-18] MEDS: Aspirin EC Low Dose* 81 MG TAB.EC PO SCH (08:46)
[2017-02-18] MEDS: QUEtiapine TAB* 25 MG PO SCH (08:46)
[2017-02-18] MEDS ORDERED: LORazepam INJ* 2 MG/ML 1 ML VIAL IV PUSH ONE (09:00)
--- NOTE | 2017-02-18 12:18 | PN ---
Subjective Date of Service: 02/18/17 Interval History: patient is more alert today. Still intermittently agitated. She did take her morning oral medications. She is muttering a few comprehensible words. Objective Active Medications: Acetaminophen (Tylenol Tab*) 650 mg PO Q4H PRN PRN Reason: FEVER/PAIN Amlodipine Besylate (Norvasc Tab*) 5 mg PO DAILY [facility] Last Admin: 02/17/17 10:36 Dose: 5 mg Aspirin (Aspirin Ec Low Dose*) 81 mg PO DAILY [facility] Last Admin: 02/18/17 08:46 Dose: 81 mg Atorvastatin Calcium (Lipitor*) 40 mg PO QPM [facility] Last Admin: 02/17/17 17:16 Dose: 40 mg Buspirone HCl (Buspar Tab*) 10 mg PO BID [facility] Last Admin: 02/18/17 08:46 Dose: 10 mg Clopidogrel Bisulfate (Plavix Tab*) 75 mg PO DAILY [facility] Last Admin: 02/17/17 10:36 Dose: 75 mg Enoxaparin Sodium (Lovenox(*)) 30 mg SUBCUT Q24H [facility] Last Admin: 02/17/17 17:16 Dose: 30 mg Haloperidol Lactate (Haldol Inj Iv/Im*) 5 mg IM Q4H PRN PRN Reason: AGITATION Last Admin: 02/17/17 21:59 Dose: 5 mg Ceftriaxone Sodium 1,000 mg/ (Sodium Chloride) 50 mls @ 200 mls/hr IVPB Q24H [facility] Last Admin: 02/17/17 12:25 Dose: 200 mls/hr Lactated Ringer's (Lactated Ringers 1000 Ml Bag*) 1,000 mls @ 75 mls/hr IV PER RATE [facility] Last Admin: 02/18/17 09:07 Dose: 75 mls/hr Lorazepam (Ativan Inj*) 0.5 mg IV PUSH Q4H PRN PRN Reason: AGITATION Last Admin: 02/18/17 07:27 Dose: 0.5 mg Metoprolol Tartrate (Lopressor Tab*) 50 mg PO BID [facility] Last Admin: 02/17/17 21:56 Dose: 50 mg Mirtazapine (Remeron Tab*) 15 mg PO BEDTIME [facility] Last Admin: 02/17/17 21:57 Dose: 15 mg Pantoprazole Sodium (Protonix Tab (Nf)) 40 mg PO DAILY [facility] Last Admin: 02/17/17 10:48 Dose: Not Given Polyethylene Glycol/Electrolytes (Miralax*) 17 gm PO QAM [facility] Last Admin: 02/17/17 10:49 Dose: Not Given Quetiapine Fumarate (Seroquel Tab*) 50 mg PO BID [facility] Last Admin: 02/18/17 08:46 Dose: 50 mg Vital Signs: Temp Pulse Resp BP Pulse Ox 97.9 F 95 20 137/83 97 02/17/17 07:54 02/18/17 08:58 02/18/17 09:12 02/18/17 08:58 02/17/17 17:19 Oxygen Devices in Use Now: None Appearance: Eyes closed, muttering. Agitated with any physical manipulation. Unable to complete physical exam Neurological: - - alert Result Diagrams: 02/15/17 11:09 02/15/17 11:09 Additional Lab and Data: . Microbiology and Other Data: Microbiology 02/15/17 21:05 Nasal Screen MRSA (PCR)(RAINE) - Final Nasal Mrsa Positive Assess/Plan/Problems-Billing Assessment: This is an 87 yo female with advanced dementia as well as prior TIA and HTN who was admitted for severe agitation. - Patient Problems (1) Agitation Comment: Improving More alert today, but still requiring some prn medications Appreciate psychiatric consultation who suggested continuing current medication regimen Urine culture demonstrates UTI which is likely contributing to current sx's (2) UTI (urinary tract infection) Comment: Urine cx growing >100K Enterococcus Started ceftriaxone empirically Awaiting sensitivities (3) Dementia Comment: Moderate to severe with history of mild behavior concerns (4) History of TIA (transient ischemic attack) Comment: Cont statin and antiplatelet agents (5) Hypertension Comment: Normotensive cont home medications (6) Full code status Comment: Signed MOLST (7) DVT prophylaxis Comment: SQ Lovenox Status and Disposition: Inpatient. Plan for re-evaluation tomorrow by Amy for appropriateness to return vs need for custodial facility
[2017-02-18] MEDS: Metoprolol Tartrate TAB* 50 mg PO SCH (13:19)
[2017-02-18] MEDS: amLODIPine TAB* 5 MG PO SCH (13:27)
[2017-02-18] MEDS: Clopidogrel TAB* 75 MG PO SCH (13:27)
[2017-02-18] MEDS: CMCS: Pantoprazole TAB (NF) 40 MG TAB PO SCH (13:28)
[2017-02-18] MEDS: Polyethylene Glycol 3350* 17 GM PACKET PO SCH (13:28)
[2017-02-18] MEDS: cefTRIAXone VIAL(*) 1,000 MG in NS 0.9% 50 ML* 50 ML IVPB SCH (13:51)
[2017-02-18] MEDS: Enoxaparin(*) 30 MG/0.3 ML SYR SUBCUT SCH (17:17)
[2017-02-18] MEDS: Atorvastatin* 40 MG TAB PO SCH ×2 (17:18→17:30)
[2017-02-18] MEDS: Haloperidol INJ IV/IM* 5 MG/ML AMP IM PRN (20:52)
[2017-02-19] MEDS: busPIRone TAB* 10 MG PO SCH ×3 (00:03→20:13)
[2017-02-19] MEDS: Mirtazapine TAB* 15 MG PO SCH ×2 (00:05→20:13)
[2017-02-19] MEDS: QUEtiapine TAB* 25 MG PO SCH ×3 (00:05→20:13)
[2017-02-19] MEDS: LORazepam INJ* 2 MG/ML 1 ML VIAL IV PUSH PRN ×3 (00:15→19:55)
[2017-02-19] MEDS: Haloperidol INJ IV/IM* 5 MG/ML AMP IM PRN (02:18)
[2017-02-19 08:50] LABS: Hematocrit 37 % (35-47); Hemoglobin 12.2 g/dl (12.0-16.0); Mean Corpuscular HGB Conc 33 g/dl (31-36); Mean Corpuscular Hemoglobin 28 pg (27-31); Mean Corpuscular Volume 85 fL (80-97); Mean Platelet Volume 8 um3 (7.4-10.4); Red Blood Count 4.33 10^6/ul (4.0-5.4); Red Cell Distribution Width 15 % (10.5-15); White Blood Count 5.7 10^3/ul (3.5-10.8)
[2017-02-19 09:02] LABS: BUN/Creatinine Ratio 17.3 (8-20); Calcium 9.5 mg/dL (8.6-10.3); EGFR African American 64.5 (>60); EGFR Non-African American 50.1 (>60)
[2017-02-19 09:21] LABS: Potassium 4.1 mmol/L (3.5-5.0)
--- NOTE | 2017-02-19 12:43 | CONSULT ---
Identification - Patient Identification Reason for Psychiatric Consultation: Violent Behavior -: Patient is a 87 year old, F admitted on 02/15/17. - MHU Identification Employment Status: Disabled Hx Psychiatric Hospitalization: No History - Objective HPI: Catrachita is seen in her room for follow up. A staff member is having difficulty feeding her, as she is moaning unintelligibly with her eyes closed and being minimally cooperative. Staff notes indicate that she had her last episode of agitation with biting and hitting last evening and required IM doses of haloperidol and lorazepam to regain safety. She has received most doses of scheduled oral quetiapine over the weekend, but not yet this morning's dose. Patient's daughter, Theresa, shows me pictures of her mother one day prior to admission, eating and socializing at [facility]. States mother's current presentation is far below recent baseline. Patient pending transfer to [facility] per documentation. Lab Results: Laboratory Tests 02/16/17 02/19/17 02/19/17 00:20 08:32 08:32 WBC 5.7 RBC 4.33 Hgb 12.2 Hct 37 MCV 85 MCH 28 MCHC 33 RDW 15 Plt Count 264 MPV 8 Neut % (Auto) 73.9 Lymph % (Auto) 16.2 L [place] % (Auto) 7.4 Eos % (Auto) 1.5 Baso % (Auto) 1.0 Absolute Neuts (auto) 4.2 Absolute Lymphs (auto) 0.9 L Absolute Monos (auto) 0.4 Absolute Eos (auto) 0.1 Absolute Basos (auto) 0.1 Absolute Nucleated RBC 0 Nucleated RBC % 0.1 Sodium 143 Potassium 4.1 Chloride 110 Carbon Dioxide 26 Anion Gap 7 BUN 18 Creatinine 1.04 H Est GFR ( Amer) 64.5 Est GFR (Non-Af Amer) 50.1 BUN/Creatinine Ratio 17.3 Glucose 114 H Calcium 9.5 Ammonia 26 Exam Appearance: Thin Framed Hygiene: Normal Grooming: Disheveled Psychomotor Activities: Normal Exhibits Abnormal Movement: No Attitude and Relatedness: Regressed Eye Contact: Poor - Speech Quality: Unpressured Quantity: Terse Patient's Decription of Mood: "Irritable" Observed Affect: Labile Affect Consistent with: Dysphoria Patient's Thought Process: Disorganized Thought Content: Yes Paranoid Ideation, No Passive Wish, No Suicidal Planning, No Homicidal Ideation Experiencing Hallucinations: No, Sensorium is Clear Type of Hallucinations: Visual: No, Auditory: No, Command: No Level of Consciousness: Agitated Orientation: No Intact, No Orientated to Time, No Orientated to Place, No Orientated to Person Impulse Control: Poor Insight and Judgement: Impaired Impression - Impression Clinical Impression: 87 y.o. , white female with a history of dementia presents with acute confusion and agitation following recent move from rehab facility in [place], [place] to [facility] here in [place]. Review of labs shows no obvious etiology of delirium. Inpatient DSM-IV Dx: Moderate Neurocognitive DO Merits Inpatient Hospitalization: No Problem List - MHU Problems Type of Problem: Impulse Control Status of Problem: Active Plan - Treatment Plan Treatment Plan: Patient receiving scheduled quetiapine 50mg PO BID and prn IM haloperidol and lorazepam. Will increase quetiapine to 75mg PO BID. Order brain CT to rule out organicity. Psychiatry will continue to follow. Continued Medication Management: Continue Outpt Medication Medications: Current Medications Acetaminophen (Tylenol Tab*) 650 mg PO Q4H PRN PRN Reason: FEVER/PAIN Amlodipine Besylate (Norvasc Tab*) 5 mg PO DAILY [facility] Last Admin: 02/18/17 13:27 Dose: Not Given Aspirin (Aspirin Ec Low Dose*) 81 mg PO DAILY [facility] Last Admin: 02/18/17 08:46 Dose: 81 mg Atorvastatin Calcium (Lipitor*) 40 mg PO QPM [facility] Last Admin: 02/18/17 17:30 Dose: Not Given Buspirone HCl (Buspar Tab*) 10 mg PO BID [facility] Last Admin: 02/19/17 00:03 Dose: 10 mg Clopidogrel Bisulfate (Plavix Tab*) 75 mg PO DAILY [facility] Last Admin: 02/18/17 13:27 Dose: Not Given Enoxaparin Sodium (Lovenox(*)) 30 mg SUBCUT Q24H [facility] Last Admin: 02/18/17 17:17 Dose: 30 mg Haloperidol Lactate (Haldol Inj Iv/Im*) 5 mg IM Q4H PRN PRN Reason: AGITATION Last Admin: 02/19/17 02:18 Dose: 5 mg Ceftriaxone Sodium 1,000 mg/ (Sodium Chloride) 50 mls @ 200 mls/hr IVPB Q24H [facility] Last Admin: 02/18/17 13:51 Dose: 200 mls/hr Lactated Ringer's (Lactated Ringers 1000 Ml Bag*) 1,000 mls @ 75 mls/hr IV PER RATE [facility] Last Admin: 02/19/17 06:30 Dose: 75 mls/hr Lorazepam (Ativan Inj*) 0.5 mg IV PUSH Q4H PRN PRN Reason: AGITATION Last Admin: 02/19/17 00:15 Dose: 0.5 mg Metoprolol Tartrate (Lopressor Tab*) 50 mg PO BID [facility] Last Admin: 02/19/17 00:00 Dose: 50 mg Mirtazapine (Remeron Tab*) 15 mg PO BEDTIME [facility] Last Admin: 02/19/17 00:05 Dose: 15 mg Pantoprazole Sodium (Protonix Tab (Nf)) 40 mg PO DAILY [facility] Last Admin: 02/18/17 13:28 Dose: Not Given Polyethylene Glycol/Electrolytes (Miralax*) 17 gm PO QAM [facility] Last Admin: 02/18/17 13:28 Dose: Not Given Quetiapine Fumarate (Seroquel Tab*) 50 mg PO BID [facility] Last Admin: 02/19/17 00:05 Dose: 50 mg
[2017-02-19] MEDS: amLODIPine TAB* 5 MG PO SCH (13:27)
[2017-02-19] MEDS: Clopidogrel TAB* 75 MG PO SCH (13:28)
[2017-02-19] MEDS: Polyethylene Glycol 3350* 17 GM PACKET PO SCH (13:28)
[2017-02-19] MEDS: CMCS: Pantoprazole TAB (NF) 40 MG TAB PO SCH (13:28)
[2017-02-19] MEDS: Aspirin EC Low Dose* 81 MG TAB.EC PO SCH (13:28)
[2017-02-19] MEDS: Metoprolol Tartrate TAB* 50 mg PO SCH ×3 (13:28→20:13)
[2017-02-19] MEDS: cefTRIAXone VIAL(*) 1,000 MG in NS 0.9% 50 ML* 50 ML IVPB SCH (13:35)
[2017-02-19] MEDS ORDERED: QUEtiapine TAB* 25 MG PO SCH (14:00)
--- NOTE | 2017-02-19 14:18 | PN ---
Subjective Date of Service: 02/19/17 Interval History: Patient is still intermittently combative. Required 1 dose of Ativan and Haldol overnight. She did get up the commode this am and ate breakfast with an aide this am. She was re-evaluated by psychiatry earlier today who recommends increasing Seroquel to [address] of the brain. Objective Active Medications: Acetaminophen (Tylenol Tab*) 650 mg PO Q4H PRN PRN Reason: FEVER/PAIN Amlodipine Besylate (Norvasc Tab*) 5 mg PO DAILY [facility] Last Admin: 02/19/17 13:27 Dose: 5 mg Aspirin (Aspirin Ec Low Dose*) 81 mg PO DAILY [facility] Last Admin: 02/19/17 13:28 Dose: 81 mg Atorvastatin Calcium (Lipitor*) 40 mg PO QPM [facility] Last Admin: 02/18/17 17:30 Dose: Not Given Buspirone HCl (Buspar Tab*) 10 mg PO BID [facility] Last Admin: 02/19/17 13:28 Dose: 10 mg Clopidogrel Bisulfate (Plavix Tab*) 75 mg PO DAILY [facility] Last Admin: 02/19/17 13:28 Dose: 75 mg Enoxaparin Sodium (Lovenox(*)) 30 mg SUBCUT Q24H [facility] Last Admin: 02/18/17 17:17 Dose: 30 mg Haloperidol Lactate (Haldol Inj Iv/Im*) 5 mg IM Q4H PRN PRN Reason: AGITATION Last Admin: 02/19/17 02:18 Dose: 5 mg Ceftriaxone Sodium 1,000 mg/ (Sodium Chloride) 50 mls @ 200 mls/hr IVPB Q24H [facility] Last Admin: 02/19/17 13:35 Dose: 200 mls/hr Lactated Ringer's (Lactated Ringers 1000 Ml Bag*) 1,000 mls @ 75 mls/hr IV PER RATE [facility] Last Admin: 02/19/17 06:30 Dose: 75 mls/hr Lorazepam (Ativan Inj*) 0.5 mg IV PUSH Q4H PRN PRN Reason: AGITATION Last Admin: 02/19/17 13:53 Dose: 0.5 mg Metoprolol Tartrate (Lopressor Tab*) 50 mg PO BID [facility] Last Admin: 02/19/17 13:28 Dose: 50 mg Mirtazapine (Remeron Tab*) 15 mg PO BEDTIME [facility] Last Admin: 02/19/17 00:05 Dose: 15 mg Pantoprazole Sodium (Protonix Tab (Nf)) 40 mg PO DAILY [facility] Last Admin: 02/19/17 13:28 Dose: 40 mg Polyethylene Glycol/Electrolytes (Miralax*) 17 gm PO QAM [facility] Last Admin: 02/19/17 13:28 Dose: 17 gm Quetiapine Fumarate (Seroquel Tab*) 75 mg PO BID [facility] Quetiapine Fumarate (Seroquel Tab*) 50 mg PO BID [facility] Stop: 02/19/17 20:59 Last Admin: 02/19/17 13:28 Dose: 50 mg Vital Signs: Temp Pulse Resp BP Pulse Ox 97.2 F 79 26 143/64 100 02/19/17 07:45 02/19/17 07:45 02/19/17 13:53 02/19/17 07:45 02/19/17 07:45 Oxygen Devices in Use Now: None Appearance: Elderly female who is intermittently agitated, she does not allow for full physical exam. Neurological: - - alert, mumbling Result Diagrams: 02/19/17 08:32 02/19/17 08:32 Additional Lab and Data: . Microbiology and Other Data: Microbiology 02/15/17 21:05 Nasal Screen MRSA (PCR)(RAINE) - Final Nasal Mrsa Positive Assess/Plan/Problems-Billing Assessment: This is an 87 yo female with advanced dementia as well as prior TIA and HTN who was admitted for severe agitation. - Patient Problems (1) Agitation Comment: Improving More alert today, but still requiring some prn medications Appreciate psychiatric consultation who suggested increasing Seroquel and repeat CT Urine culture demonstrates UTI which is likely contributing to current sx's (2) UTI (urinary tract infection) Comment: Urine cx growing >100K Enterococcus Started ceftriaxone empirically Awaiting sensitivities (3) Dementia Comment: Moderate to severe with history of mild behavior concerns (4) History of TIA (transient ischemic attack) Comment: Cont statin and antiplatelet agents (5) Hypertension Comment: Normotensive cont home medications (6) Full code status Comment: Signed MOLST (7) DVT prophylaxis Comment: SQ Lovenox Status and Disposition: Inpatient. Amy does not feel that she is appropriate to return at this time. Referrals sent to skilled facilities
[2017-02-19] MEDS: Enoxaparin(*) 30 MG/0.3 ML SYR SUBCUT SCH (20:13)
[2017-02-19] MEDS: Atorvastatin* 40 MG TAB PO SCH (20:13)
--- NOTE | 2017-02-19 21:00 | RAD ---
INDICATION: Change in mental status COMPARISON: CT brain February 15, 2017 TECHNIQUE: Noncontrast axial source images were acquired from the skull base to the vertex. FINDINGS: Ventricles/sulci: The ventricles and cisterns are normal in size and configuration for age. Brain parenchyma: There is no focal parenchymal finding, evidence of intracranial mass, or intracranial mass effect. Intracranial hemorrhage:None. Extra-axial spaces: There are no abnormal extra axial fluid collections or evidence of extra-axial mass. Calvarium: There is no calvarial fracture or other calvarial abnormality. Scalp: There is no evidence of scalp or extracalvarial soft tissue abnormality. Paranasal sinuses/mastoid: The paranasal sinuses and mastoid air cells are clear. Other: None. IMPRESSION: CORTICAL ATROPHY WITH CHRONIC MICROVASCULAR ISCHEMIC CHANGES. NO ACUTE FINDINGS.
[2017-02-20] MEDS: LORazepam INJ* 2 MG/ML 1 ML VIAL IV PUSH PRN ×2 (00:22→17:14)
[2017-02-20] MEDS: busPIRone TAB* 10 MG PO SCH ×2 (08:33→20:09)
[2017-02-20] MEDS: Metoprolol Tartrate TAB* 50 mg PO SCH ×2 (08:33→20:09)
[2017-02-20] MEDS: Polyethylene Glycol 3350* 17 GM PACKET PO SCH (08:33)
[2017-02-20] MEDS: QUEtiapine TAB* 25 MG PO SCH ×2 (08:33→20:10)
[2017-02-20] MEDS: CMCS: Pantoprazole TAB (NF) 40 MG TAB PO SCH (08:33)
[2017-02-20] MEDS: Clopidogrel TAB* 75 MG PO SCH (08:33)
[2017-02-20] MEDS: Aspirin EC Low Dose* 81 MG TAB.EC PO SCH (08:33)
[2017-02-20] MEDS: amLODIPine TAB* 5 MG PO SCH (08:33)
--- NOTE | 2017-02-20 09:54 | PN ---
Subjective Date of Service: 02/20/17 Interval History: Patient was reportedly agitated overnight and received 2 doses of IV Ativan. She was cooperative this am, however. She got up to a recliner, allowed for a bed bath and ate breakfast along with taking her morning medications. She is still resting comfortably at this time. Objective Active Medications: Acetaminophen (Tylenol Tab*) 650 mg PO Q4H PRN PRN Reason: FEVER/PAIN Amlodipine Besylate (Norvasc Tab*) 5 mg PO DAILY [facility] Last Admin: 02/20/17 08:33 Dose: 5 mg Aspirin (Aspirin Ec Low Dose*) 81 mg PO DAILY [facility] Last Admin: 02/20/17 08:33 Dose: 81 mg Atorvastatin Calcium (Lipitor*) 40 mg PO QPM [facility] Last Admin: 02/19/17 20:13 Dose: 40 mg Buspirone HCl (Buspar Tab*) 10 mg PO BID [facility] Last Admin: 02/20/17 08:33 Dose: 10 mg Clopidogrel Bisulfate (Plavix Tab*) 75 mg PO DAILY [facility] Last Admin: 02/20/17 08:33 Dose: 75 mg Enoxaparin Sodium (Lovenox(*)) 30 mg SUBCUT Q24H [facility] Last Admin: 02/19/17 20:13 Dose: 30 mg Haloperidol Lactate (Haldol Inj Iv/Im*) 5 mg IM Q4H PRN PRN Reason: AGITATION Last Admin: 02/19/17 02:18 Dose: 5 mg Ceftriaxone Sodium 1,000 mg/ (Sodium Chloride) 50 mls @ 200 mls/hr IVPB Q24H [facility] Last Admin: 02/19/17 13:35 Dose: 200 mls/hr Lactated Ringer's (Lactated Ringers 1000 Ml Bag*) 1,000 mls @ 75 mls/hr IV PER RATE [facility] Last Admin: 02/20/17 09:46 Dose: 75 mls/hr Lorazepam (Ativan Inj*) 0.5 mg IV PUSH Q4H PRN PRN Reason: AGITATION Last Admin: 02/20/17 00:22 Dose: 0.5 mg Metoprolol Tartrate (Lopressor Tab*) 50 mg PO BID [facility] Last Admin: 02/20/17 08:33 Dose: 50 mg Mirtazapine (Remeron Tab*) 15 mg PO BEDTIME [facility] Last Admin: 02/19/17 20:13 Dose: 15 mg Pantoprazole Sodium (Protonix Tab (Nf)) 40 mg PO DAILY [facility] Last Admin: 02/20/17 08:33 Dose: 40 mg Polyethylene Glycol/Electrolytes (Miralax*) 17 gm PO QAM [facility] Last Admin: 02/20/17 08:33 Dose: 17 gm Quetiapine Fumarate (Seroquel Tab*) 75 mg PO BID [facility] Last Admin: 02/20/17 08:33 Dose: 75 mg Vital Signs: Temp Pulse Resp BP Pulse Ox 97.4 F 105 22 145/98 100 02/20/17 07:43 02/20/17 07:43 02/20/17 07:44 02/20/17 07:43 02/20/17 07:43 Oxygen Devices in Use Now: None Appearance: Elderly female, resting, does not awake with verbal or light tactile stimuli Respiratory: Symmetrical Chest Expansion and Respiratory Effort, Clear to Auscultation Cardiovascular: NL Sounds; No Murmurs; No JVD, RRR Abdominal: - - soft Extremities: No Edema Skin: No Rash or Ulcers - multiple areas of ecchymosis Neurological: - - resting Result Diagrams: 02/19/17 08:32 02/19/17 08:32 Additional Lab and Data: . Microbiology and Other Data: Microbiology 02/15/17 21:05 Nasal Screen MRSA (PCR)(RAINE) - Final Nasal Mrsa Positive Diagnostic Imaging: CT brain - chronic microvascular changes and atrophy, no acute changes Assess/Plan/Problems-Billing Assessment: This is an 87 yo female with advanced dementia as well as prior TIA and HTN who was admitted for severe agitation. - Patient Problems (1) Agitation Comment: Improving More cooperative today, but still requiring some prn medications Appreciate psychiatric consultation who suggested increasing Seroquel CT shows nothing acute Urine culture demonstrates UTI which is likely contributing to current sx's (2) UTI (urinary tract infection) Comment: Urine cx growing >100K Enterococcus Started ceftriaxone empirically Unable to perform sensitivities on Enterococcus, but she appears to be clinically improving with the Ceftriaxone Can repeat urine cx ~1week post treatment to ensure resolution (3) Dementia Comment: Moderate to severe with history of mild behavior concerns (4) History of TIA (transient ischemic attack) Comment: Cont statin and antiplatelet agents (5) Hypertension Comment: Normotensive cont home medications (6) Full code status Comment: Signed MOLST (7) DVT prophylaxis Comment: SQ Lovenox Status and Disposition: Inpatient. Amy does not feel that she is appropriate to return at this time. Referrals sent to skilled facilities, awaiting response from facilities
[2017-02-20] MEDS: cefTRIAXone VIAL(*) 1,000 MG in NS 0.9% 50 ML* 50 ML IVPB SCH (11:42)
[2017-02-20] MEDS: Atorvastatin* 40 MG TAB PO SCH (17:15)
[2017-02-20] MEDS: Enoxaparin(*) 30 MG/0.3 ML SYR SUBCUT SCH (17:15)
[2017-02-20] MEDS: Mirtazapine TAB* 15 MG PO SCH (20:09)
[2017-02-21] MEDS: Polyethylene Glycol 3350* 17 GM PACKET PO SCH (08:21)
[2017-02-21] MEDS: Aspirin EC Low Dose* 81 MG TAB.EC PO SCH (08:22)
[2017-02-21] MEDS: QUEtiapine TAB* 25 MG PO SCH ×2 (08:22→20:34)
[2017-02-21] MEDS: amLODIPine TAB* 5 MG PO SCH (08:22)
[2017-02-21] MEDS: Clopidogrel TAB* 75 MG PO SCH (08:22)
[2017-02-21] MEDS: Metoprolol Tartrate TAB* 50 mg PO SCH ×2 (08:22→20:39)
[2017-02-21] MEDS: busPIRone TAB* 10 MG PO SCH ×2 (08:22→20:39)
[2017-02-21] MEDS: CMCS: Pantoprazole TAB (NF) 40 MG TAB PO SCH (08:39)
--- NOTE | 2017-02-21 10:53 | CONSULT ---
Identification - Patient Identification Reason for Psychiatric Consultation: Violent Behavior -: Patient is a 87 year old, F admitted on 02/15/17. - MHU Identification Employment Status: Disabled Hx Psychiatric Hospitalization: No History - Objective HPI: I stopped in to see Catrachita this AM and she is accompanied by two nursing staff who are trying to get her to unclench her fists. She apparently tried to bite one of them prior to my entrance. Catrachita is unable to answer questions today, keeping her eyes tightly closed and making unintelligible sounds in response to verbal stimuli. Staff denies that she has had prn medications for agitation thus far today, but she did receive them last evening for combative behavior. Catrachita took her PO meds with maximal staff intervention this AM, having to consume them crushed in ice cream. Lab Results: Laboratory Tests 02/16/17 02/19/17 02/19/17 00:20 08:32 08:32 WBC 5.7 RBC 4.33 Hgb 12.2 Hct 37 MCV 85 MCH 28 MCHC 33 RDW 15 Plt Count 264 MPV 8 Neut % (Auto) 73.9 Lymph % (Auto) 16.2 L [place] % (Auto) 7.4 Eos % (Auto) 1.5 Baso % (Auto) 1.0 Absolute Neuts (auto) 4.2 Absolute Lymphs (auto) 0.9 L Absolute Monos (auto) 0.4 Absolute Eos (auto) 0.1 Absolute Basos (auto) 0.1 Absolute Nucleated RBC 0 Nucleated RBC % 0.1 Sodium 143 Potassium 4.1 Chloride 110 Carbon Dioxide 26 Anion Gap 7 BUN 18 Creatinine 1.04 H Est GFR ( Amer) 64.5 Est GFR (Non-Af Amer) 50.1 BUN/Creatinine Ratio 17.3 Glucose 114 H Calcium 9.5 Ammonia 26 Exam Appearance: Thin Framed Hygiene: Normal Grooming: Disheveled Psychomotor Activities: Normal Exhibits Abnormal Movement: No Attitude and Relatedness: Regressed Eye Contact: Poor - Speech Quality: Unpressured Quantity: Terse Patient's Decription of Mood: "Irritable" Observed Affect: Labile Affect Consistent with: Dysphoria Patient's Thought Process: Disorganized Thought Content: Yes Paranoid Ideation, No Passive Wish, No Suicidal Planning, No Homicidal Ideation Experiencing Hallucinations: No, Sensorium is Clear Type of Hallucinations: Visual: No, Auditory: No, Command: No Level of Consciousness: Agitated Orientation: No Intact, No Orientated to Time, No Orientated to Place, No Orientated to Person Impulse Control: Poor Insight and Judgement: Impaired Impression - Impression Clinical Impression: 87 y.o. , white female with a history of dementia presents with acute confusion and agitation following recent move from rehab facility in [place], [place] to [facility] here in [place]. Urine cultures demonstrate bacterial infection. Inpatient DSM-IV Dx: Delirium secondary to UTI Merits Inpatient Hospitalization: No Problem List - MHU Problems Type of Problem: Impulse Control Status of Problem: Active Plan - Treatment Plan Treatment Plan: Patient receiving scheduled quetiapine 75mg PO BID and prn IM haloperidol and lorazepam. Imaging shows no acute findings. Delirium likely secondary to UTI. At this point her behavior and cognition are not improving and I'm wondering if perhaps the lorazepam is making it worse. We'll discontinue this in favor of using the haloperidol preferentially. Psychiatry will continue to follow. Continued Medication Management: Start Medication Medications: Current Medications Acetaminophen (Tylenol Tab*) 650 mg PO Q4H PRN PRN Reason: FEVER/PAIN Amlodipine Besylate (Norvasc Tab*) [address] [facility] Last Admin: 02/21/17 08:22 Dose: 5 mg Aspirin (Aspirin Ec Low Dose*) [address] [facility] Last Admin: 02/21/17 08:22 Dose: 81 mg Atorvastatin Calcium (Lipitor*) [address] [facility] Last Admin: 02/20/17 17:15 Dose: 40 mg Buspirone HCl (Buspar Tab*) [address] [facility] Last Admin: 02/21/17 08:22 Dose: 10 mg Clopidogrel Bisulfate (Plavix Tab*) [address] [facility] Last Admin: 02/21/17 08:22 Dose: 75 mg Enoxaparin Sodium (Lovenox(*)) [address] [facility] Last Admin: 02/20/17 17:15 Dose: 30 mg Haloperidol Lactate (Haldol Inj Iv/Im*) 5 mg IM Q4H PRN PRN Reason: AGITATION Last Admin: 02/19/17 02:18 Dose: 5 mg Ceftriaxone Sodium 1,000 mg/ (Sodium Chloride) 50 mls @ 200 mls/hr IVPB Q24H [facility] Last Admin: 02/20/17 11:42 Dose: 200 mls/hr Lactated Ringer's (Lactated Ringers 1000 Ml Bag*) 1,000 mls @ 75 mls/hr IV PER RATE [facility] Last Admin: 02/20/17 23:22 Dose: 75 mls/hr Metoprolol Tartrate (Lopressor Tab*) [address] [facility] Last Admin: 02/21/17 08:22 Dose: 50 mg Mirtazapine (Remeron Tab*) [address] [facility] Last Admin: 02/20/17 20:09 Dose: 15 mg Pantoprazole Sodium (Protonix Tab (Nf)) [address] [facility] Last Admin: 02/21/17 08:39 Dose: Not Given Polyethylene Glycol/Electrolytes (Miralax*) [address] [facility] Last Admin: 02/21/17 08:21 Dose: 17 gm Quetiapine Fumarate (Seroquel Tab*) [address] [facility] Last Admin: 02/21/17 08:22 Dose: 75 mg
[2017-02-21] MEDS: cefTRIAXone VIAL(*) 1,000 MG in NS 0.9% 50 ML* 50 ML IVPB SCH (13:14)
--- NOTE | 2017-02-21 13:26 | PN ---
Subjective Date of Service: 02/21/17 Interval History: Patient seen and examined at bedside. Pt is alert and "babbling" some words are understandable and others are not. Pt unable to report how she is feeling, only states "don't touch me". Pt received ativan twice yesterday and no Haldol in 2 days. Pt took medications this AM. Family History: Unchanged from Admission Social History: Unchanged from Admission Past Medical History: Unchanged from Admission Objective Active Medications: Acetaminophen (Tylenol Tab*) 650 mg PO Q4H PRN Reason: FEVER/PAIN Amlodipine Besylate (Norvasc Tab*) 5 mg PO DAILY [facility] Aspirin (Aspirin Ec Low Dose*) 81 mg PO DAILY [facility] Atorvastatin Calcium (Lipitor*) 40 mg PO QPM [facility] Buspirone HCl (Buspar Tab*) 10 mg PO BID [facility] Clopidogrel Bisulfate (Plavix Tab*) 75 mg PO DAILY [facility] Enoxaparin Sodium (Lovenox(*)) 30 mg SUBCUT Q24H [facility] Haloperidol Lactate (Haldol Inj Iv/Im*) 5 mg IM Q4H PRN Reason: AGITATION Ceftriaxone Sodium 1,000 mg/ (Sodium Chloride) 50 mls @ 200 mls/hr IVPB Q24H [facility] Lactated Ringer's (Lactated Ringers 1000 Ml Bag*) 1,000 mls @ 75 mls/hr IV PER RATE [facility] Metoprolol Tartrate (Lopressor Tab*) 50 mg PO BID [facility] Mirtazapine (Remeron Tab*) 15 mg PO BEDTIME [facility] Pantoprazole Sodium (Protonix Tab (Nf)) 40 mg PO DAILY [facility] Polyethylene Glycol/Electrolytes (Miralax*) 17 gm PO QAM [facility] Quetiapine Fumarate (Seroquel Tab*) 75 mg PO BID [facility] Vital Signs 02/20/17 02/20/17 02/20/17 15:30 17:14 18:14 Temperature 98.0 F Pulse Rate 95 Respiratory 26 24 18 Rate Blood Pressure 140/70 (mmHg) O2 Sat by Pulse 99 Oximetry 02/20/17 02/20/17 02/20/17 19:49 22:51 23:24 Temperature 98.6 F 97.5 F Pulse Rate 98 79 Respiratory 16 22 16 Rate Blood Pressure 148/93 159/78 (mmHg) O2 Sat by Pulse 100 100 Oximetry 02/21/17 02/21/17 08:00 08:08 Temperature Pulse Rate 108 Respiratory 18 15 Rate Blood Pressure 193/84 (mmHg) O2 Sat by Pulse 99 Oximetry Oxygen Devices in Use Now: None Appearance: NAD, sitting up in bed Ears/Nose/Mouth/Throat: Mucous Membranes Moist Respiratory: Symmetrical Chest Expansion and Respiratory Effort, Clear to Auscultation Cardiovascular: NL Sounds; No Murmurs; No JVD, RRR Abdominal: NL Sounds; No Tenderness; No Distention Extremities: No Edema Skin: No Rash or Ulcers Neurological: - - Alert and confused Nutrition: Taking PO's Result Diagrams: 02/19/17 08:32 02/19/17 08:32 Microbiology and Other Data: Microbiology 02/15/17 21:05 Nasal Screen MRSA (PCR)(RAINE) - Final Nasal Mrsa Positive Diagnostic Imaging: CT brain - chronic microvascular changes and atrophy, no acute changes Assess/Plan/Problems-Billing Assessment: Ms. Bhatia is an 87 yo female with advanced dementia as well as prior TIA and HTN who was admitted for severe agitation. - Patient Problems (1) Agitation Code(s): R45.1 - RESTLESSNESS AND AGITATION SNOMED Code(s): 09595095 Comment: - Improving - More cooperative at times, but still requiring some prn medications - Appreciate psychiatric consultation - CT shows nothing acute - Urine culture demonstrates UTI which is likely contributing to current sx's - Continue Seroquel and prn haldol (d/c ativan as this may be contributing to some of her symptoms) (2) UTI (urinary tract infection) Comment: - Urine cx growing >100K Enterococcus - Unable to perform sensitivities on Enterococcus, but she appears to be clinically improving with the Ceftriaxone - Discontinue ceftriaxone, received 5 day course - Can repeat urine cx ~1week post treatment to ensure resolution (3) Dementia Code(s): F03.90 - UNSPECIFIED DEMENTIA WITHOUT BEHAVIORAL DISTURBANCE SNOMED Code(s): 27476022 Comment: - Moderate to severe with history of mild behavior concerns (4) History of TIA (transient ischemic attack) Comment: - Continue ASA, plavix, and atrovastatin (5) Hypertension Code(s): I10 - ESSENTIAL (PRIMARY) HYPERTENSION SNOMED Code(s): 29400490 Comment: - Mostly Normotensive, occasionally hypertensive - Continue Norvasc, will increase if she continues to be hypertensive (6) DVT prophylaxis Code(s): EWK9835 - SNOMED Code(s): 621979642 Comment: - SQ Lovenox (7) Full code status Code(s): Z78.9 - OTHER SPECIFIED HEALTH STATUS SNOMED Code(s): 670915251 Comment: Signed MOLST Status and Disposition: Inpatient. Amy does not feel that she is appropriate to return at this time. Referrals sent to skilled facilities, awaiting response from facilities.
[2017-02-21] MEDS: Haloperidol INJ IV/IM* 5 MG/ML AMP IM PRN ×2 (13:38→19:13)
[2017-02-21] MEDS ORDERED: Haloperidol INJ IV/IM* 5 MG/ML AMP IM ONE (16:24)
[2017-02-21] MEDS: Mirtazapine TAB* 15 MG PO SCH (20:35)
[2017-02-21] MEDS: Atorvastatin* 40 MG TAB PO SCH (20:39)
[2017-02-21] MEDS: Enoxaparin(*) 30 MG/0.3 ML SYR SUBCUT SCH (20:40)
[2017-02-22] MEDS: Haloperidol INJ IV/IM* 5 MG/ML AMP IM PRN (00:44)
[2017-02-22] MEDS: Metoprolol Tartrate TAB* 50 mg PO SCH ×2 (08:56→20:12)
[2017-02-22] MEDS: Clopidogrel TAB* 75 MG PO SCH (08:56)
[2017-02-22] MEDS: busPIRone TAB* 10 MG PO SCH ×2 (08:56→20:13)
[2017-02-22] MEDS: CMCS: Pantoprazole TAB (NF) 40 MG TAB PO SCH (08:56)
[2017-02-22] MEDS: Aspirin EC Low Dose* 81 MG TAB.EC PO SCH (08:57)
[2017-02-22] MEDS: QUEtiapine TAB* 25 MG PO SCH ×2 (08:57→20:13)
[2017-02-22] MEDS: amLODIPine TAB* 5 MG PO SCH (08:57)
[2017-02-22] MEDS: Polyethylene Glycol 3350* 17 GM PACKET PO SCH (09:08)
--- NOTE | 2017-02-22 10:46 | PN ---
Subjective Date of Service: 02/22/17 Interval History: Patient seen and examined at bedside. Pt is alert and eating breakfast. Denies pain or other complaints. She is able to hold a short conversation today. She knows that she is in [facility], but thinks that she is at home. Reports the year to be 196. She appears to be more cooperative today. Family History: Unchanged from Admission Social History: Unchanged from Admission Past Medical History: Unchanged from Admission Objective Active Medications: Acetaminophen (Tylenol Tab*) 650 mg PO Q4H PRN Reason: FEVER/PAIN Amlodipine Besylate (Norvasc Tab*) 10 mg PO DAILY [facility] Aspirin (Aspirin Ec Low Dose*) 81 mg PO DAILY [facility] Atorvastatin Calcium (Lipitor*) 40 mg PO QPM [facility] Buspirone HCl (Buspar Tab*) 10 mg PO BID [facility] Clopidogrel Bisulfate (Plavix Tab*) 75 mg PO DAILY [facility] Enoxaparin Sodium (Lovenox(*)) 30 mg SUBCUT Q24H [facility] Haloperidol Lactate (Haldol Inj Iv/Im*) 5 mg IM Q4H PRN Reason: AGITATION Lactated Ringer's (Lactated Ringers 1000 Ml Bag*) 1,000 mls @ 75 mls/hr IV PER RATE [facility] Metoprolol Tartrate (Lopressor Tab*) 50 mg PO BID [facility] Mirtazapine (Remeron Tab*) 15 mg PO BEDTIME [facility] Pantoprazole Sodium (Protonix Tab (Nf)) 40 mg PO DAILY [facility] Polyethylene Glycol/Electrolytes (Miralax*) 17 gm PO QAM [facility] Quetiapine Fumarate (Seroquel Tab*) 75 mg PO BID COUNTS INCLUDE 234 BEDS AT [facility] Vital Signs 02/21/17 02/21/17 02/21/17 11:35 15:03 20:00 Temperature 97.2 F Pulse Rate 90 91 Respiratory 20 18 Rate Blood Pressure 176/96 (mmHg) O2 Sat by Pulse 99 100 Oximetry 02/21/17 02/22/17 02/22/17 20:47 00:08 03:32 Temperature 97.3 F 98.4 F 98.1 F Pulse Rate 103 102 91 Respiratory 16 16 20 Rate Blood Pressure 144/71 156/99 180/96 (mmHg) O2 Sat by Pulse 97 100 95 Oximetry 02/22/17 02/22/17 02/22/17 06:14 07:50 08:00 Temperature 98.4 F Pulse Rate 93 97 Respiratory 16 18 15 Rate Blood Pressure 177/85 133/70 (mmHg) O2 Sat by Pulse 97 100 Oximetry Oxygen Devices in Use Now: None Appearance: NAD, sitting up in a chair Respiratory: Symmetrical Chest Expansion and Respiratory Effort, Clear to Auscultation - , diminished Cardiovascular: NL Sounds; No Murmurs; No JVD, RRR Abdominal: NL Sounds; No Tenderness; No Distention Extremities: No Edema Skin: No Rash or Ulcers Neurological: NL Muscle Strength and Tone, - - Alert and Oriented to Person, confused Lines/Tubes/Other Access: Clean, Dry and Intact Peripheral IV - site benign Nutrition: Taking PO's Result Diagrams: 02/19/17 08:32 02/19/17 08:32 Microbiology and Other Data: Microbiology 02/15/17 21:05 Nasal Screen MRSA (PCR)(RAINE) - Final Nasal Mrsa Positive Diagnostic Imaging: CT brain - chronic microvascular changes and atrophy, no acute changes Assess/Plan/Problems-Billing Assessment: Ms. Bhatia is an 87 yo female with advanced dementia as well as prior TIA and HTN who was admitted for severe agitation. - Patient Problems (1) Agitation Code(s): R45.1 - RESTLESSNESS AND AGITATION SNOMED Code(s): 66691337 Comment: - Improving - More cooperative today, but still requiring some prn medications - Appreciate psychiatric consultation - CT shows nothing acute - Urine culture demonstrates UTI which was likely contributing to sx's - Continue Seroquel and prn haldol (d/c ativan as this may be contributing to some of her symptoms) (2) UTI (urinary tract infection) Comment: - Urine cx growing >100K Enterococcus - Unable to perform sensitivities on Enterococcus, but she appears to be clinically improving with the Ceftriaxone - Received 5 day course of ceftriaxone - Can repeat urine cx ~1week post treatment to ensure resolution (3) Dementia Code(s): F03.90 - UNSPECIFIED DEMENTIA WITHOUT BEHAVIORAL DISTURBANCE SNOMED Code(s): 36889864 Comment: - Moderate to severe with history of mild behavior concerns (4) History of TIA (transient ischemic attack) Comment: - Continue ASA, plavix, and atrovastatin (5) Hypertension Code(s): I10 - ESSENTIAL (PRIMARY) HYPERTENSION SNOMED Code(s): 69923035 Comment: - Hypertensive - Continue Norvasc (increased to 10mg today) (6) DVT prophylaxis Code(s): [id number] - SNOMED Code(s): 965675755 Comment: - SQ Lovenox (7) Full code status Code(s): Z78.9 - OTHER SPECIFIED HEALTH STATUS SNOMED Code(s): 817212358 Comment: Signed MOLST Status and Disposition: Inpatient. Amy does not feel that she is appropriate to return at this time. Referrals sent to skilled facilities, awaiting response from facilities.
[2017-02-22] MEDS: Atorvastatin* 40 MG TAB PO SCH (18:37)
[2017-02-22] MEDS: Enoxaparin(*) 30 MG/0.3 ML SYR SUBCUT SCH (18:37)
[2017-02-22] MEDS: Mirtazapine TAB* 15 MG PO SCH (20:13)
[2017-02-23] MEDS: Polyethylene Glycol 3350* 17 GM PACKET PO SCH (10:00)
--- NOTE | 2017-02-23 10:44 | PN ---
Subjective Date of Service: 02/23/17 Interval History: Patient seen and examined at bedside. Pt is less confused today and able to have a conversation. She is reporting left shoulder discomfort, but has full range of motion. Denies fever, chills, shortness of breath, chest discomfort, N/ V/D. Family History: Unchanged from Admission Social History: Unchanged from Admission Past Medical History: Unchanged from Admission Objective Active Medications: Acetaminophen (Tylenol Tab*) 650 mg PO Q4H PRN Reason: FEVER/PAIN Amlodipine Besylate (Norvasc Tab*) 10 mg PO DAILY [facility] Aspirin (Aspirin Ec Low Dose*) 81 mg PO DAILY [facility] Atorvastatin Calcium (Lipitor*) 40 mg PO QPM [facility] Buspirone HCl (Buspar Tab*) 10 mg PO BID [facility] Clopidogrel Bisulfate (Plavix Tab*) 75 mg PO DAILY [facility] Enoxaparin Sodium (Lovenox(*)) 30 mg SUBCUT Q24H [facility] Haloperidol Lactate (Haldol Inj Iv/Im*) 5 mg IM Q4H PRN Reason: AGITATION Metoprolol Tartrate (Lopressor Tab*) 50 mg PO BID [facility] Mirtazapine (Remeron Tab*) 15 mg PO BEDTIME [facility] Pantoprazole Sodium (Protonix Tab (Nf)) 40 mg PO DAILY [facility] Polyethylene Glycol/Electrolytes (Miralax*) 17 gm PO QAM [facility] Quetiapine Fumarate (Seroquel Tab*) 75 mg PO BID [facility] Vital Signs 02/22/17 02/22/17 02/22/17 15:21 19:55 20:00 Temperature 98.7 F 97.4 F Pulse Rate 86 92 Respiratory 18 20 18 Rate Blood Pressure 129/55 101/52 (mmHg) O2 Sat by Pulse 99 98 Oximetry 02/22/17 02/23/17 23:42 04:06 Temperature 98.7 F 98.2 F Pulse Rate 91 78 Respiratory 16 16 Rate Blood Pressure 115/63 113/58 (mmHg) O2 Sat by Pulse 98 98 Oximetry Oxygen Devices in Use Now: None Appearance: NAD, sitting up in a chair Ears/Nose/Mouth/Throat: Mucous Membranes Moist Respiratory: Symmetrical Chest Expansion and Respiratory Effort, Clear to Auscultation Cardiovascular: NL Sounds; No Murmurs; No JVD, RRR Abdominal: NL Sounds; No Tenderness; No Distention Extremities: No Edema, - - Left shoulder with full ROM and no crepitus noted, non tender Skin: No Rash or Ulcers Neurological: - - Alert and Oriented to Person, confused Lines/Tubes/Other Access: Clean, Dry and Intact Peripheral IV - site benign Nutrition: Taking PO's Result Diagrams: 02/19/17 08:32 02/19/17 08:32 Microbiology and Other Data: Microbiology 02/15/17 21:05 Nasal Screen MRSA (PCR)(RAINE) - Final Nasal Mrsa Positive Diagnostic Imaging: CT brain - chronic microvascular changes and atrophy, no acute changes Assess/Plan/Problems-Billing Assessment: Ms. Bhatia is an 87 yo female with advanced dementia as well as prior TIA and HTN who was admitted for severe agitation. - Patient Problems (1) Agitation Code(s): R45.1 - RESTLESSNESS AND AGITATION SNOMED Code(s): 30865982 Comment: - Improving - Appreciate psychiatric consultation - CT shows nothing acute - Urine culture demonstrates UTI which was likely contributing to sx's - Continue Seroquel and prn haldol (d/c'd ativan as this may be contributing to some of her symptoms) (2) UTI (urinary tract infection) Comment: - Urine cx growing >100K Enterococcus - Unable to perform sensitivities on Enterococcus, but she appears to be clinically improving with the Ceftriaxone - Received 5 day course of ceftriaxone - Can repeat urine cx ~1week post treatment to ensure resolution (3) Dementia Code(s): F03.90 - UNSPECIFIED DEMENTIA WITHOUT BEHAVIORAL DISTURBANCE SNOMED Code(s): 99760018 Comment: - Moderate to severe with history of mild behavior concerns (4) History of TIA (transient ischemic attack) Comment: - Continue ASA, plavix, and atrovastatin (5) Hypertension Code(s): I10 - ESSENTIAL (PRIMARY) HYPERTENSION SNOMED Code(s): 90453285 Comment: - Normotensive - Continue Norvasc (6) DVT prophylaxis Code(s): KSJ6071 - SNOMED Code(s): 328283661 Comment: - SQ Lovenox (7) Full code status Code(s): Z78.9 - OTHER SPECIFIED HEALTH STATUS SNOMED Code(s): 099064580 Comment: Signed MOLST Status and Disposition: Inpatient. Amy does not feel that she is appropriate to return at this time. Referrals sent to skilled facilities, awaiting response from facilities.
[2017-02-23] MEDS: QUEtiapine TAB* 25 MG PO SCH ×2 (11:28→20:30)
[2017-02-23] MEDS: Metoprolol Tartrate TAB* 50 mg PO SCH ×2 (11:28→20:30)
[2017-02-23] MEDS: Clopidogrel TAB* 75 MG PO SCH (11:28)
[2017-02-23] MEDS: amLODIPine TAB* 5 MG PO SCH (11:29)
[2017-02-23] MEDS: busPIRone TAB* 10 MG PO SCH ×2 (11:29→20:30)
[2017-02-23] MEDS: CMCS: Pantoprazole TAB (NF) 40 MG TAB PO SCH (11:29)
[2017-02-23] MEDS: Aspirin EC Low Dose* 81 MG TAB.EC PO SCH (11:29)
--- NOTE | 2017-02-23 15:11 | CONSULT ---
Identification - Patient Identification Reason for Psychiatric Consultation: Violent Behavior -: Patient is a 87 year old, F admitted on 02/15/17. - MHU Identification Employment Status: Disabled Hx Psychiatric Hospitalization: No History - Objective HPI: Catrachita appears to have improved over that past two days and she is able to answer some very basic questions, although she remains disoriented to place, time and situation. She appears to be tolerating the resumption of quetiapine therapy well and is awake and alert. She denies SI or HI. Lab Results: Laboratory Tests 02/16/17 02/19/17 02/19/17 00:20 08:32 08:32 WBC 5.7 RBC 4.33 Hgb 12.2 Hct 37 MCV 85 MCH 28 MCHC 33 RDW 15 Plt Count 264 MPV 8 Neut % (Auto) 73.9 Lymph % (Auto) 16.2 L [place] % (Auto) 7.4 Eos % (Auto) 1.5 Baso % (Auto) 1.0 Absolute Neuts (auto) 4.2 Absolute Lymphs (auto) 0.9 L Absolute Monos (auto) 0.4 Absolute Eos (auto) 0.1 Absolute Basos (auto) 0.1 Absolute Nucleated RBC 0 Nucleated RBC % 0.1 Sodium 143 Potassium 4.1 Chloride 110 Carbon Dioxide 26 Anion Gap 7 BUN 18 Creatinine 1.04 H Est GFR ( Amer) 64.5 Est GFR (Non-Af Amer) 50.1 BUN/Creatinine Ratio 17.3 Glucose 114 H Calcium 9.5 Ammonia 26 Exam Appearance: Thin Framed Hygiene: Normal Grooming: Fairly Well Kept Psychomotor Activities: Normal Exhibits Abnormal Movement: No Attitude and Relatedness: Regressed Eye Contact: Poor - Speech Quality: Unpressured Quantity: Terse Patient's Decription of Mood: "Fine" Observed Affect: Fair Affect Consistent with: Euthymia Patient's Thought Process: Disorganized Thought Content: No Passive Wish, No Suicidal Planning, No Homicidal Ideation, No Paranoid Ideation Experiencing Hallucinations: No, Sensorium is Clear Type of Hallucinations: Visual: No, Auditory: No, Command: No Level of Consciousness: Alert Orientation: No Intact, No Orientated to Time, No Orientated to Place, No Orientated to Person Impulse Control: Poor Insight and Judgement: Impaired Impression - Impression Clinical Impression: 87 y.o. , white female with a history of dementia presents with acute confusion and agitation following recent move from rehab facility in [place], [place] to [facility] here in [place]. Urine cultures demonstrate bacterial infection. Inpatient DSM-IV Dx: Delirium secondary to UTI Merits Inpatient Hospitalization: No Problem List - MHU Problems Type of Problem: Impulse Control Status of Problem: Active Plan - Treatment Plan Treatment Plan: Patient receiving scheduled quetiapine 75mg PO BID and appears to be improving. Imaging shows no acute findings. Delirium likely secondary to UTI. Her behavior and cognition are likely not totally back to normal, although we are not entirely certain what her baseline is. She would benefit from further quetiapine therapy and recommend that she stay on the 75mg BIB dose. Psychiatry will continue to follow. Continued Medication Management: Start Medication Medications: Current Medications Acetaminophen (Tylenol Tab*) 650 mg PO Q4H PRN PRN Reason: FEVER/PAIN Amlodipine Besylate (Norvasc Tab*) 10 mg PO DAILY [facility] Last Admin: 02/23/17 11:29 Dose: 10 mg Aspirin (Aspirin Ec Low Dose*) 81 mg PO DAILY [facility] Last Admin: 02/23/17 11:29 Dose: 81 mg Atorvastatin Calcium (Lipitor*) 40 mg PO QPM [facility] Last Admin: 02/22/17 18:37 Dose: 40 mg Buspirone HCl (Buspar Tab*) 10 mg PO BID [facility] Last Admin: 02/23/17 11:29 Dose: 10 mg Clopidogrel Bisulfate (Plavix Tab*) 75 mg PO DAILY [facility] Last Admin: 02/23/17 11:28 Dose: 75 mg Enoxaparin Sodium (Lovenox(*)) 30 mg SUBCUT Q24H [facility] Last Admin: 02/22/17 18:37 Dose: 30 mg Haloperidol Lactate (Haldol Inj Iv/Im*) 5 mg IM Q4H PRN PRN Reason: AGITATION Last Admin: 02/22/17 00:44 Dose: 5 mg Metoprolol Tartrate (Lopressor Tab*) 50 mg PO BID [facility] Last Admin: 02/23/17 11:28 Dose: 50 mg Mirtazapine (Remeron Tab*) 15 mg PO BEDTIME [facility] Last Admin: 02/22/17 20:13 Dose: 15 mg Pantoprazole Sodium (Protonix Tab (Nf)) 40 mg PO DAILY [facility] Last Admin: 02/23/17 11:29 Dose: 40 mg Polyethylene Glycol/Electrolytes (Miralax*) 17 gm PO QAM [facility] Last Admin: 02/23/17 10:00 Dose: 17 gm Quetiapine Fumarate (Seroquel Tab*) 75 mg PO BID [facility] Last Admin: 02/23/17 11:28 Dose: 75 mg
[2017-02-23] MEDS: Enoxaparin(*) 30 MG/0.3 ML SYR SUBCUT SCH (18:40)
[2017-02-23] MEDS: Atorvastatin* 40 MG TAB PO SCH (18:40)
[2017-02-23] MEDS: Mirtazapine TAB* 15 MG PO SCH (20:30)
[2017-02-23] MEDS: Acetaminophen TAB* 325 MG PO PRN (20:30)
[2017-02-24] MEDS: Clopidogrel TAB* 75 MG PO SCH (09:37)
[2017-02-24] MEDS: amLODIPine TAB* 5 MG PO SCH (09:37)
[2017-02-24] MEDS: busPIRone TAB* 10 MG PO SCH ×2 (09:37→20:17)
[2017-02-24] MEDS: Polyethylene Glycol 3350* 17 GM PACKET PO SCH (09:37)
[2017-02-24] MEDS: QUEtiapine TAB* 25 MG PO SCH ×2 (09:38→20:17)
[2017-02-24] MEDS: Aspirin EC Low Dose* 81 MG TAB.EC PO SCH (09:38)
[2017-02-24] MEDS: CMCS: Pantoprazole TAB (NF) 40 MG TAB PO SCH (09:38)
[2017-02-24] MEDS: Metoprolol Tartrate TAB* 50 mg PO SCH ×3 (09:38→20:40)
[2017-02-24] MEDS: Acetaminophen TAB* 325 MG PO PRN ×2 (13:38→20:17)
--- NOTE | 2017-02-24 15:14 | PN ---
Progress Note - Progress Note Date of Service: 02/24/17 Note: I had a lenghty discussion with the daughter about dx, prognosis, management, and discharge plans.
--- NOTE | 2017-02-24 15:14 | PN ---
Subjective Date of Service: 02/24/17 Interval History: Patient sleeping in bed. Family History: Unchanged from Admission Social History: Unchanged from Admission Past Medical History: Unchanged from Admission Objective Active Medications: Acetaminophen (Tylenol Tab*) 650 mg PO Q4H PRN PRN Reason: FEVER/PAIN Last Admin: 02/24/17 13:38 Dose: 650 mg Amlodipine Besylate (Norvasc Tab*) 10 mg PO DAILY [facility] Last Admin: 02/24/17 09:37 Dose: 10 mg Aspirin (Aspirin Ec Low Dose*) 81 mg PO DAILY [facility] Last Admin: 02/24/17 09:38 Dose: 81 mg Atorvastatin Calcium (Lipitor*) 40 mg PO QPM [facility] Last Admin: 02/23/17 18:40 Dose: 40 mg Buspirone HCl (Buspar Tab*) 10 mg PO BID [facility] Last Admin: 02/24/17 09:37 Dose: 10 mg Clopidogrel Bisulfate (Plavix Tab*) 75 mg PO DAILY [facility] Last Admin: 02/24/17 09:37 Dose: 75 mg Enoxaparin Sodium (Lovenox(*)) 30 mg SUBCUT Q24H [facility] Last Admin: 02/23/17 18:40 Dose: 30 mg Haloperidol Lactate (Haldol Inj Iv/Im*) 5 mg IM Q4H PRN PRN Reason: AGITATION Last Admin: 02/22/17 00:44 Dose: 5 mg Metoprolol Tartrate (Lopressor Tab*) 50 mg PO BID [facility] Last Admin: 02/24/17 09:38 Dose: 50 mg Mirtazapine (Remeron Tab*) 15 mg PO BEDTIME [facility] Last Admin: 02/23/17 20:30 Dose: 15 mg Pantoprazole Sodium (Protonix Tab (Nf)) 40 mg PO DAILY [facility] Last Admin: 02/24/17 09:38 Dose: 40 mg Polyethylene Glycol/Electrolytes (Miralax*) 17 gm PO QAM [facility] Last Admin: 02/24/17 09:37 Dose: 17 gm Quetiapine Fumarate (Seroquel Tab*) 75 mg PO BID [facility] Last Admin: 02/24/17 09:38 Dose: 75 mg Vital Signs 02/23/17 02/23/17 02/23/17 16:01 20:29 20:30 Temperature 98.6 F Pulse Rate 88 86 Respiratory 18 16 16 Rate Blood Pressure 117/71 118/67 (mmHg) O2 Sat by Pulse 98 98 Oximetry 02/23/17 02/24/17 02/24/17 23:37 03:15 08:00 Temperature 98.2 F 98.5 F Pulse Rate 72 73 Respiratory 16 16 16 Rate Blood Pressure 108/62 138/70 (mmHg) O2 Sat by Pulse 99 100 Oximetry Oxygen Devices in Use Now: None Appearance: Asleep in bed, looks comfortable. Respiratory: Symmetrical Chest Expansion and Respiratory Effort Extremities: No Edema, No Clubbing, Cyanosis, - Skin: No Rash or Ulcers, No Nodules or Sclerosis, - Result Diagrams: 02/19/17 08:32 02/19/17 08:32 Additional Lab and Data: . Microbiology and Other Data: Microbiology 02/15/17 21:05 Nasal Screen MRSA (PCR)(RAINE) - Final Nasal Mrsa Positive Diagnostic Imaging: CT brain - chronic microvascular changes and atrophy, no acute changes Assess/Plan/Problems-Billing Assessment: Ms. Bhatia is an 87 yo female with advanced dementia as well as prior TIA and HTN who was admitted for severe agitation. - Patient Problems (1) UTI (urinary tract infection) Current Visit: Yes Status: Acute Comment: - Urine cx growing >100K Enterococcus - Unable to perform sensitivities on Enterococcus, but she appears to be clinically improving with the Ceftriaxone Note neg U/A. - Can repeat urine cx ~1week post treatment to ensure resolution (2) Dementia Current Visit: No Status: Acute Code(s): F03.90 - UNSPECIFIED DEMENTIA WITHOUT BEHAVIORAL DISTURBANCE SNOMED Code(s): 23822818 Comment: - Moderate to severe with history of negative behaviors, much improved on higher dose of quetiapine. (3) Hypertension Current Visit: No Status: Chronic Code(s): I10 - ESSENTIAL (PRIMARY) HYPERTENSION SNOMED Code(s): 45208419 Comment: - Continue Norvasc (4) History of TIA (transient ischemic attack) Current Visit: No Status: Chronic Comment: - Continue ASA, plavix, and atorvastatin Status and Disposition: Inpatient. Amy does not feel that she is appropriate to return at this time. Referrals sent to skilled facilities, awaiting response from facilities.
[2017-02-24] MEDS: Haloperidol INJ IV/IM* 5 MG/ML AMP IM PRN (16:23)
--- NOTE | 2017-02-24 16:38 | CONSULT ---
Consult Consult: S: Catrachita is sleeping soundly and is not disturbed by this clinician. I do speak with her daughter and understand, also from staff documentation, that she has experienced some improvement in confusion and agitation. Her daughter, Theresa , would like her mother transferred to a geriatric specialty inpatient psychiatric unit at a facility called [facility] in [place], [place]. She's hoping that if her tendency towards delirium can be better managed that her mother can return to reside at [facility]. O: aging white female, asleep, comfortable, no evidence of agitation A/P: Delirium: this is secondary to a UTI which is being treated with antibiotic therapy. This is now the third formal episode of encephalopathy, one associated with a pneumonia and a prior one secondary to another UTI. At this point it appears that this is an episodic problem. We have resumed quetiapine therapy and increased the dose to 75mg PO BID, however, the family is concerned that similar episodes in the future will prevent jail placement at [facility]. Psychiatry recommends transfer to the geriatric inpatient facility at [facility], or similar unit, for further management with an emphasis on preventing further episodes of encephalopathy.
[2017-02-24] MEDS: Enoxaparin(*) 30 MG/0.3 ML SYR SUBCUT SCH (17:57)
[2017-02-24] MEDS: Atorvastatin* 40 MG TAB PO SCH (17:57)
[2017-02-24] MEDS: Mirtazapine TAB* 15 MG PO SCH (20:18)
--- NOTE | 2017-02-25 09:44 | PTEDU ---
Patient Name: ENE DE LA O TY DE LA OHER selected video: Care of Suprapubic Catheter to view on 02/25/2017 at 9:43:05 AM from [email or web address]
[2017-02-25] MEDS: busPIRone TAB* 10 MG PO SCH ×2 (10:01→20:22)
[2017-02-25] MEDS: Aspirin EC Low Dose* 81 MG TAB.EC PO SCH (10:01)
[2017-02-25] MEDS: Clopidogrel TAB* 75 MG PO SCH (10:01)
[2017-02-25] MEDS: Metoprolol Tartrate TAB* 50 mg PO SCH ×2 (10:02→20:22)
[2017-02-25] MEDS: QUEtiapine TAB* 25 MG PO SCH ×2 (10:03→20:22)
[2017-02-25] MEDS: amLODIPine TAB* 5 MG PO SCH (10:03)
[2017-02-25] MEDS: Polyethylene Glycol 3350* 17 GM PACKET PO SCH (10:04)
[2017-02-25] MEDS: CMCS: Pantoprazole TAB (NF) 40 MG TAB PO SCH (10:04)
--- NOTE | 2017-02-25 12:18 | PN ---
Subjective Date of Service: 02/25/17 Interval History: No c/o. Not clear if she could make her needs known. Family History: Unchanged from Admission Social History: Unchanged from Admission Past Medical History: Unchanged from Admission Objective Active Medications: Acetaminophen (Tylenol Tab*) 650 mg PO Q4H PRN PRN Reason: FEVER/PAIN Last Admin: 02/24/17 20:17 Dose: 650 mg Amlodipine Besylate (Norvasc Tab*) 2.5 mg PO DAILY [facility] Aspirin (Aspirin Ec Low Dose*) 81 mg PO DAILY [facility] Last Admin: 02/25/17 10:01 Dose: 81 mg Atorvastatin Calcium (Lipitor*) 40 mg PO QPM [facility] Last Admin: 02/24/17 17:57 Dose: 40 mg Buspirone HCl (Buspar Tab*) 10 mg PO BID [facility] Last Admin: 02/25/17 10:01 Dose: 10 mg Clopidogrel Bisulfate (Plavix Tab*) 75 mg PO DAILY [facility] Last Admin: 02/25/17 10:01 Dose: 75 mg Enoxaparin Sodium (Lovenox(*)) 30 mg SUBCUT Q24H [facility] Last Admin: 02/24/17 17:57 Dose: 30 mg Haloperidol Lactate (Haldol Inj Iv/Im*) 5 mg IM Q4H PRN PRN Reason: AGITATION Last Admin: 02/24/17 16:23 Dose: 5 mg Metoprolol Tartrate (Lopressor Tab*) 50 mg PO BID [facility] Last Admin: 02/25/17 10:02 Dose: Not Given Mirtazapine (Remeron Tab*) 15 mg PO BEDTIME [facility] Last Admin: 02/24/17 20:18 Dose: 15 mg Pantoprazole Sodium (Protonix Tab (Nf)) 40 mg PO DAILY [facility] Last Admin: 02/25/17 10:04 Dose: 40 mg Polyethylene Glycol/Electrolytes (Miralax*) 17 gm PO QAM [facility] Last Admin: 02/25/17 10:04 Dose: Not Given Quetiapine Fumarate (Seroquel Tab*) 75 mg PO BID [facility] Last Admin: 02/25/17 10:03 Dose: 75 mg Vital Signs 02/24/1717 02/24/17 17:28 20:00 20:29 Temperature 97.7 F Pulse Rate 80 76 Respiratory 20 16 16 Rate Blood Pressure 114/57 100/50 (mmHg) O2 Sat by Pulse 100 100 Oximetry 02/25/17 02/25/17 02/25/17 03:26 04:05 07:25 Temperature 98.6 F 97.4 F 97.5 F Pulse Rate 70 72 86 Respiratory 16 16 16 Rate Blood Pressure 102/40 95/39 142/69 (mmHg) O2 Sat by Pulse 98 100 100 Oximetry 02/25/17 08:00 Temperature Pulse Rate Respiratory 16 Rate Blood Pressure (mmHg) O2 Sat by Pulse Oximetry Oxygen Devices in Use Now: None Appearance: Alert, in a chair. In good spirits. Looks comfortable. Eyes: No Scleral Icterus Neck: NL Appearance and Movements; NL JVP, No Thyroid Enlargement, Masses Respiratory: Symmetrical Chest Expansion and Respiratory Effort, Clear to Auscultation, Clear to Percussion Cardiovascular: RRR, No Edema, - - 2/6 systolic murmur RSB Extremities: No Edema, No Clubbing, Cyanosis, - Skin: No Rash or Ulcers, No Nodules or Sclerosis, - Neurological: NL Sensation, - - She can state her full name but not her age. No tremor. Speech dysarthric. Few teeth. Result Diagrams: 02/19/17 08:32 02/19/17 08:32 Additional Lab and Data: . Microbiology and Other Data: Microbiology 02/15/17 21:05 Nasal Screen MRSA (PCR)(RAINE) - Final Nasal Mrsa Positive Diagnostic Imaging: CT brain - chronic microvascular changes and atrophy, no acute changes Assess/Plan/Problems-Billing Assessment: Ms. Bhatia is an 87 yo female with advanced dementia as well as prior TIA and HTN who was admitted for severe agitation. - Patient Problems (1) UTI (urinary tract infection) Current Visit: Yes Status: Acute Comment: - Urine cx growing >100K Enterococcus Received 5 doses IV Ceftriaxone, last dose 02/21. Note neg U/A. - Can repeat urine cx ~1week post treatment to ensure resolution (2) Dementia Current Visit: No Status: Acute Code(s): F03.90 - UNSPECIFIED DEMENTIA WITHOUT BEHAVIORAL DISTURBANCE SNOMED Code(s): 40643304 Comment: - Moderate to severe with history of negative behaviors, much improved on higher dose of quetiapine. (3) Hypertension Current Visit: No Status: Chronic Code(s): I10 - ESSENTIAL (PRIMARY) HYPERTENSION SNOMED Code(s): 07457627 Comment: Reduce amlodipine to 2.5 mg daily starting 02/26. (4) History of TIA (transient ischemic attack) Current Visit: No Status: Chronic Comment: - Continue ASA, plavix, and atorvastatin Status and Disposition: Inpatient. Amy does not feel that she is appropriate to return at this time. Referrals sent to skilled facilities, awaiting response from facilities.
[2017-02-25] MEDS: Haloperidol INJ IV/IM* 5 MG/ML AMP IM PRN ×2 (14:26→22:35)
[2017-02-25] MEDS: Acetaminophen TAB* 325 MG PO PRN (14:26)
[2017-02-25] MEDS: Atorvastatin* 40 MG TAB PO SCH (18:19)
[2017-02-25] MEDS: Enoxaparin(*) 30 MG/0.3 ML SYR SUBCUT SCH (18:19)
[2017-02-25] MEDS: Mirtazapine TAB* 15 MG PO SCH (20:22)
[2017-02-26] MEDS: Acetaminophen TAB* 325 MG PO PRN ×2 (00:24→10:23)
[2017-02-26] MEDS: Polyethylene Glycol 3350* 17 GM PACKET PO SCH (09:00)
[2017-02-26] MEDS ORDERED: amLODIPine TAB* 5 MG PO SCH (09:00)
[2017-02-26] MEDS: amLODIPine TAB* 5 MG PO SCH (09:23)
[2017-02-26] MEDS: Clopidogrel TAB* 75 MG PO SCH (09:24)
[2017-02-26] MEDS: Metoprolol Tartrate TAB* 50 mg PO SCH ×2 (09:24→22:38)
[2017-02-26] MEDS: Aspirin EC Low Dose* 81 MG TAB.EC PO SCH (09:24)
[2017-02-26] MEDS: busPIRone TAB* 10 MG PO SCH ×2 (09:24→22:38)
[2017-02-26] MEDS: QUEtiapine TAB* 25 MG PO SCH ×2 (09:24→22:38)
[2017-02-26] MEDS: CMCS: Pantoprazole TAB (NF) 40 MG TAB PO SCH (09:24)
[2017-02-26] MEDS: Haloperidol INJ IV/IM* 5 MG/ML AMP IM PRN ×2 (10:23→15:56)
--- NOTE | 2017-02-26 12:17 | CONSULT ---
Identification - Patient Identification Reason for Psychiatric Consultation: Violent Behavior -: Patient is a 87 year old, F admitted on 02/15/17. - MHU Identification Employment Status: Disabled Hx Psychiatric Hospitalization: No History - Objective HPI: Catrachita is seen in the hallway where staff is wheeling her in a chair to get a break from her room. Apparently she was agitated again this AM and required IM haloperidol. As per SW notes, she has been accepted to the [facility] program at [facility] in [facility] and family is in support of this. The patient remains somewhat confused on exam and can only articulate "I want to go home." Lab Results: Laboratory Tests 02/16/17 02/19/17 02/19/17 00:20 08:32 08:32 WBC 5.7 RBC 4.33 Hgb 12.2 Hct 37 MCV 85 MCH 28 MCHC 33 RDW 15 Plt Count 264 MPV 8 Neut % (Auto) 73.9 Lymph % (Auto) 16.2 L [place] % (Auto) 7.4 Eos % (Auto) 1.5 Baso % (Auto) 1.0 Absolute Neuts (auto) 4.2 Absolute Lymphs (auto) 0.9 L Absolute Monos (auto) 0.4 Absolute Eos (auto) 0.1 Absolute Basos (auto) 0.1 Absolute Nucleated RBC 0 Nucleated RBC % 0.1 Sodium 143 Potassium 4.1 Chloride 110 Carbon Dioxide 26 Anion Gap 7 BUN 18 Creatinine 1.04 H Est GFR ( Amer) 64.5 Est GFR (Non-Af Amer) 50.1 BUN/Creatinine Ratio 17.3 Glucose 114 H Calcium 9.5 Ammonia 26 Exam Appearance: Thin Framed Hygiene: Normal Grooming: Fairly Well Kept Psychomotor Activities: Normal Exhibits Abnormal Movement: No Attitude and Relatedness: Regressed Eye Contact: Poor - Speech Quality: Unpressured Quantity: Terse Patient's Decription of Mood: "Fine" Observed Affect: Fair Affect Consistent with: Euthymia Patient's Thought Process: Disorganized Thought Content: No Passive Wish, No Suicidal Planning, No Homicidal Ideation, No Paranoid Ideation Experiencing Hallucinations: No, Sensorium is Clear Type of Hallucinations: Visual: No, Auditory: No, Command: No Level of Consciousness: Alert Orientation: No Intact, No Orientated to Time, No Orientated to Place, No Orientated to Person Impulse Control: Poor Insight and Judgement: Impaired Impression - Impression Clinical Impression: 87 y.o. , white female with a history of dementia presents with acute confusion and agitation following recent move from rehab facility in [place], [place] to [facility] here in [place]. Urine cultures demonstrate bacterial infection. Merits Inpatient Hospitalization: Yes Problem List - MHU Problems Type of Problem: Impulse Control Status of Problem: Active Plan - Treatment Plan Treatment Plan: Patient has a history of recurrent bouts of delirium associated with UTI or pneumonia. Would benefit from geriatric psych stabilization. She is currently receiving scheduled quetiapine 75mg PO BID and tolerating this well. Her behavior and cognition are likely not totally back to normal, although we are not entirely certain what her baseline is. Plan is to transfer tomorrow to [facility] in [place], [place]. Psychiatry is signing off. Continued Medication Management: Start Medication Medications: Current Medications Acetaminophen (Tylenol Tab*) 650 mg PO Q4H PRN PRN Reason: FEVER/PAIN Last Admin: 02/26/17 10:23 Dose: 650 mg Amlodipine Besylate (Norvasc Tab*) 2.5 mg PO DAILY [facility] Last Admin: 02/26/17 09:23 Dose: 2.5 mg Aspirin (Aspirin Ec Low Dose*) 81 mg PO DAILY [facility] Last Admin: 02/26/17 09:24 Dose: 81 mg Atorvastatin Calcium (Lipitor*) 40 mg PO QPM [facility] Last Admin: 02/25/17 18:19 Dose: 40 mg Buspirone HCl (Buspar Tab*) 10 mg PO BID [facility] Last Admin: 02/26/17 09:24 Dose: 10 mg Clopidogrel Bisulfate (Plavix Tab*) 75 mg PO DAILY [facility] Last Admin: 02/26/17 09:24 Dose: 75 mg Enoxaparin Sodium (Lovenox(*)) 30 mg SUBCUT Q24H [facility] Last Admin: 02/25/17 18:19 Dose: 30 mg Haloperidol Lactate (Haldol Inj Iv/Im*) 5 mg IM Q4H PRN PRN Reason: AGITATION Last Admin: 02/26/17 10:23 Dose: 5 mg Metoprolol Tartrate (Lopressor Tab*) 50 mg PO BID [facility] Last Admin: 02/26/17 09:24 Dose: 50 mg Mirtazapine (Remeron Tab*) 15 mg PO BEDTIME [facility] Last Admin: 02/25/17 20:22 Dose: 15 mg Pantoprazole Sodium (Protonix Tab (Nf)) 40 mg PO DAILY [facility] Last Admin: 02/26/17 09:24 Dose: 40 mg Polyethylene Glycol/Electrolytes (Miralax*) 17 gm PO QAM [facility] Last Admin: 02/25/17 10:04 Dose: Not Given Quetiapine Fumarate (Seroquel Tab*) 75 mg PO BID [facility] Last Admin: 02/26/17 09:24 Dose: 75 mg - Discharge Plan Discharge Plan: Inpatient Hospitalization
--- NOTE | 2017-02-26 16:32 | PN ---
Progress Note - Progress Note Date of Service: 02/26/17 Note: Time spent on discharge 50 minutes.
[2017-02-26] MEDS: Atorvastatin* 40 MG TAB PO SCH (17:42)
[2017-02-26] MEDS: Enoxaparin(*) 30 MG/0.3 ML SYR SUBCUT SCH (18:37)
[2017-02-26] MEDS: Mirtazapine TAB* 15 MG PO SCH (22:38)
--- NOTE | 2017-02-27 02:16 | TRS ---
DISCHARGE/TRANSFER SUMMARY: DATE OF ADMISSION: 02/15/17 DATE OF TRANSFER: 02/27/17 This is being dictated in advance. HISTORY OF PRESENT ILLNESS: This 87-year-old woman was admitted here because of acute agitation. She has a history of [id number]-[id number] dementia as well as many other comorbidities. Her daughter transferred her the day before admission from a rehab facility in [facility] to [facility] yesterday to be closer to her. She came by ambulance to [place] and seemed to be okay the first day. The morning of admission, she woke and was severely combative, starting to bite, scratch, and punch the nursing staff and was transferred to the emergency room. The patient was started on quetiapine with the aid of psychiatric consultation, she did become calmer. The patient is being transferred to [facility] for geriatric psychiatric care. She was treated for urinary tract infection. She had enterococcus species. She finished treatment with 5 doses of IV ceftriaxone on 02/21/17. Her amlodipine dose was reduced to 2.5 mg daily. STUDIES DURING THIS HOSPITAL STAY: Included CT scan of the brain and chest x- ray. Routine laboratory tests were unremarkable. TSH was within normal limits on 02/15/17. The patient had an adequate treatment of her enterococcal urinary tract infection. Unless she shows symptoms of urinary tract infection or has a fever that is not otherwise explained or some other clinical reason to suspect urinary tract infection, I would not recommend getting a urine culture as it would most likely reflect colonization and natural infection. FINAL DIAGNOSES: 1. Dementia. 2. Hypertension. 3. Urinary tract infection. 4. History of transient ischemic attack. DISCHARGE MEDICATIONS: 1. Acetaminophen 650 mg every 4 hours p.r.n. 2. Enoxaparin 30 mg subcu every 24 hours. 3. Haloperidol 5 mg IM every 4 hours p.r.n. 4. Quetiapine 75 mg b.i.d. 5. Amlodipine 2.5 mg daily. 6. Risperidone 10 mg b.i.d. 7. Metoprolol 50 mg b.i.d. 8. Polyethylene glycol 17 g daily. 9. Pantoprazole 40 mg daily. 10. Mirtazapine 15 mg h.s. 11. Clopidogrel 75 mg daily. 12. Atorvastatin 40 mg h.s. 13. Aspirin 81 mg daily. [id number]/[facility] #: [id number] ANETTE
[2017-02-27 04:47] LABS: Hematocrit 31 % (35-47); Hemoglobin 10.2 g/dl (12.0-16.0); Mean Platelet Volume 8 um3 (7.4-10.4)
[2017-02-27 05:17] VITALS: BP 138/65
[2017-02-27 05:58] LABS: EGFR African American 52.1 (>60); EGFR Non-African American 40.5 (>60)
[2017-02-27] MEDS: CMCS: Pantoprazole TAB (NF) 40 MG TAB PO SCH (09:12)
[2017-02-27] MEDS: amLODIPine TAB* 5 MG PO SCH (09:12)
[2017-02-27] MEDS: busPIRone TAB* 10 MG PO SCH (09:12)
[2017-02-27] MEDS: Haloperidol INJ IV/IM* 5 MG/ML AMP IM PRN (09:12)
[2017-02-27] MEDS: QUEtiapine TAB* 25 MG PO SCH (09:12)
[2017-02-27] MEDS: Aspirin EC Low Dose* 81 MG TAB.EC PO SCH (09:13)
[2017-02-27] MEDS: Metoprolol Tartrate TAB* 50 mg PO SCH (09:13)
[2017-02-27] MEDS: Clopidogrel TAB* 75 MG PO SCH (09:13)
[2017-02-27] MEDS: Polyethylene Glycol 3350* 17 GM PACKET PO SCH (09:14)
== END 2017-02-27 10:15 | disposition short-term general hospital (02) | DRG 884 ==
LOC: ED 08:31 → MED 18:00
PROVIDERS: ADMIT Hospitalist; ATTEND Internal Medicine
DX: F03.91 Unspecified dementia, unspecified severity, with behavioral disturbance (principal); F05 Delirium due to known physiological condition; N39.0 Urinary tract infection, site not specified; B95.2 Enterococcus as the cause of diseases classified elsewhere; K59.00 Constipation, unspecified; R40.2422 Glasgow coma scale score 9-12, at arrival to emergency department; F32.9 Major depressive disorder, single episode, unspecified; F41.9 Anxiety disorder, unspecified; R45.1 Restlessness and agitation; I10 Essential (primary) hypertension; Z88.6 Allergy status to analgesic agent; Z85.038 Personal history of other malignant neoplasm of large intestine; Z88.5 Allergy status to narcotic agent; Z85.118 Personal history of other malignant neoplasm of bronchus and lung; Z82.49 Family history of ischemic heart disease and other diseases of the circulatory system; Z82.3 Family history of stroke; Z86.73 Personal history of transient ischemic attack (TIA), and cerebral infarction without residual deficits; Z92.3 Personal history of irradiation; Z87.891 Personal history of nicotine dependence; Z79.01 Long term (current) use of anticoagulants; Z79.82 Long term (current) use of aspirin
CPT/HCPCS: 36415; 70450; 71010; 80048; 80053; 80307; 80320; 80329; 81003; 81015; 82140; 82550; 82565; 83605; 83735; 84443; 84484; 84520; 85014; 85018; 85025; 85049; 85610; 87040; 87086; 87641; A9270-GY; G0480; J0696; J1630; J1650; J2060